=== PATIENT | female | born 1990 | race Caucasian/White ===

== ENCOUNTER 2017-12-17 05:11 | Inpatient (IN) ==
--- OUTSIDE RECORDS SUMMARY | 2017-12-17 05:25 | External Medical Summary | Clinical Summary ---
:1990 Author Organization [facility] Address [address] [address] Care Team Providers Name Role Phone Homer Aguila MD Primary Care Provider Unavailable Allergies No Known Allergies Current Medications Prescription Sig. Disp. Refills Start Date End Date Status Take by mouth. Active Nsnxwuga-Idg-Vc-FA ( VITAMINS PO) aspirin 81 MG EC tablet Take 81 mg by Active mouth daily. 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 Prior poor obstetrical history in second trimester, antepartum 08/25/2017 10/27/2016 Previous section 10/09/2016 Overview: Added automatically from request for surgery [id number] Currently Estimated Date of Delivery Comments Yes 01/07/2018 Based on last menstrual period of 04/02/2017 Resolved Problems Problem Noted Date Resolved Date History of eclampsia 08/25/2017 08/25/2017 Previous delivery affecting 10/08/2016 12/23/2016 PRES (posterior reversible encephalopathy syndrome) 10/08/2016 12/23/2016 Overview: After 2nd c/s History of illicit drug use 10/08/2016 12/23/2016 Obesity affecting 10/08/2016 12/23/2016 Family History Medical History Relation Name Comments No Known Problems Brother No Known Problems Daughter No Known Problems Father No Known Problems Maternal Grandfather No Known Problems Maternal Grandmother No Known Problems Mother No Known Problems Paternal Grandfather No Known Problems Paternal Grandmother No Known Problems Sister No Known Problems Son No Known Problems Son Relation Name Status Comments Brother Alive Daughter Alive Father Alive Maternal Grandfather Alive Maternal Grandmother Alive Mother Alive Paternal Grandfather Alive Paternal Grandmother Alive Sister Alive Son Alive Son Alive Social History Tobacco Use Types Packs/Day Years Used Date Never Smoker Smokeless Tobacco: Never Used Alcohol Use Drinks/Week oz/Week Comments No Currently Estimated Date of Delivery Comments Yes 01/07/2018 Based on last menstrual period of 04/02/2017 Sex Assigned at Date Recorded Not on file Last Filed Vital Signs Vital Sign Reading Time Taken Blood Pressure 116/67 08/25/2017 7:45 AM CDT Pulse 104 08/25/2017 7:45 AM CDT Temperature 36.6 C (97.9 F) 10/28/2016 12:30 PM CDT Respiratory Rate 18 10/28/2016 12:30 PM CDT Oxygen Saturation 97% 10/28/2016 12:30 PM CDT Inhaled Oxygen Concentration - - Weight 90.7 kg (200 lb) 08/25/2017 7:45 AM CDT Height 162.6 cm (5' 4") 10/27/2016 8:20 AM CDT Body Mass Index 34.33 08/25/2017 7:45 AM CDT Plan of Treatment Health Maintenance Due Date Last Done Comments HPV Vaccines (1 of 3 - Female 3-dose series) 2002 Varicella Vaccines (1 of 2 - 2-dose adolescent series) 2004 DTaP,Tdap,and Td Vaccines (1 - Tdap) 2010 CERVICAL CANCER SCREENING 2012 Results Not on filefrom Last 3 Months
--- OUTSIDE RECORDS SUMMARY | 2017-12-17 05:25 | External Medical Summary | Continuity of Care Document ---
:1990 Author Organization [facility] Address [address] [place], [place] [id number] Phone Care Team Providers Name Role Phone [facility] Unavailable Allergies, Adverse Reactions, Alerts Substance Reaction Severity Status No Known Drug Allergies Unknown Active Medications Medication Instructions Dosage Effective Status Comments Dates (start - stop) lancets 33 gauge test 4 times daily - Active OneTouch Verio test 1 Drop by Not Available - Active gestational strips Intradermal route Diab. O24.410 4 times every day fasting and postprandial aspirin 81 mg take 1 tablet by 81 MG - Active tablet,delayed oral route every release day Vitamin take 1 tablet by Not Available - Active tablet oral route every day Problems Condition Effective Dates (start - stop) Clinical Status Supervision of other high risk - pregnancies, third trimester Gestational htn w/o significant - proteinuria, third trimester Gestational diabetes mellitus in - , diet controlled Previous Low Transverse - Supervision of other high risk - pregnancies, second trimester Previous Low Transverse - 26 weeks gestation of - Suprvsn of preg w poor reprodctv or - obstet hx, second tri Previous Low Transverse - Maternal care for (suspected) damage - to fetus by drugs, unsp Obesity complicating , second - trimester Suprvsn of preg w poor reprodctv or - obstet hx, second tri Previous Low Transverse - Maternal care for (suspected) damage - to fetus by drugs, unsp 27 weeks gestation of - Suprvsn of preg w poor reprodctv or - obstet hx, third tri Maternal care for (suspected) damage - to fetus by drugs, unsp Matern care for oth or susp poor fetl - grth, third tri, unsp 30 weeks gestation of - Suprvsn of preg w poor reprodctv or - obstet hx, third tri Supervision of other high risk - pregnancies, third trimester Previous Low Transverse - Maternal care for (suspected) damage - to fetus by drugs, unsp Supervision of other high risk - pregnancies, third trimester Gestational htn w/o significant - proteinuria, third trimester Supervision of other high risk - pregnancies, third trimester Gestational htn w/o significant - proteinuria, third trimester Gestational diabetes mellitus in - , diet controlled Previous Low Transverse - Supervision of other high risk - pregnancies, third trimester Previous Low Transverse - Obesity complicating , third - trimester 28 weeks gestation of - Gestational htn w/o significant - proteinuria, third trimester Previous Low Transverse - Maternal care for (suspected) damage - to fetus by drugs, unsp 30 weeks gestation of - Procedures Procedure Date OB Visit No Charge Results Test Name Date and Time Measure Units Reference Range Abnormal Flag Comments Unknown Advance Directives Directive Yes / No Effective Date File Name Unknown Encounters Encounter Practice Location Reason(s) Diagnoses Date Provider Care Team Description For Visit Members Sarah Mello Supervision of Sobbing In Womens other high risk 6-201 [facility] [place], pregnancies, 8 700 [address] third Medical 1522, [facility] htn w/o Drive, [place], significant [address] [id number], proteinuria, 120, [place] third [place], tel:+ trimesterGestatio [place], nal diabetes [address], mellitus in [place]. , diet tel: controlledPreviou [phone] s Low Transverse [facility] Riaz Supervision of Sobbing In Womens other high risk 5-201 [facility]. [facility] [place], pregnancies, 8 700 [address] third Medical 1522, trimesterGestatio Center [place], nal htn w/o Drive, [place], significant [address] [id number], proteinuria, 120, [place] third [place], tel:+ trimesterGestatio [place], nal diabetes [address], mellitus in [place]. , diet tel: controlledPreviou [phone] s Low Transverse Associates [facility] Ifeanyi Dunnn of preg w Owen Referring In Womens Ultrasound poor reprodctv or 2-201 Viki. Provider: Beck LAM, obstet hx, third 8 [address] [facility] Box triSupervision of Manjula Valles L, 1522, other high risk [place], 700 [place], [place], [place], Medical [place], third [id number] Center [id number], trimesterPrevious , [place]. Drive Low Transverse tel: [address], tel:[phone] C-SectionMaternal [id number] [place], [place], [address]. (suspected) tel: damage to fetus [phone] by drugs, unsp Associates [facility] w Jacob Referring In Womens Ultrasound poor reprodctv or 2-201 Nick. Provider: Beck LAM, obstet hx, third [address] [place] PO Box triMaternal care Karen Vallesbing L, 1522, for (suspected) [place], 700 [place], damage to fetus [place], Medical [place], by drugs, [id number] [place] [id number], unspMatern care , [place]. Drive [place] for oth or susp tel: [address], tel:[phone] poor fetl grth, [id number] [place], third tri, [place]sp30 [place], [address]. weeks gestation tel:[phone] of [phone] Sarah [place] Supervision of Ethan-2 Sobbing In Womens other high risk [place]. Health [place], pregnancies, 8 700 PO Box third Medical 1522, trimesterGestatio Center [place], nal htn w/o Drive, [place], significant [id number], proteinuria, 120, US third trimester [place], tel:+ [place], [address], [place]. tel: [phone] Sarah [place] Gestational htn Ethan-2 Sobbing In Womens Ultrasound w/o significant [place]. Health [place], proteinuria, 8 700 PO Box third Medical 1522, trimesterPrevious Center [place], Low Transverse [facility], [place], C-SectionMaternal [address] [id number], care for 120, [place] (suspected) [place], tel: damage to fetus [place], by drugs, unsp30 [address], weeks gestation [place]. of tel: [phone] Sarah [place] Supervision of Ethan-1 Sobbing Referring In Womens other high risk [place]. Provider: Health [place], pregnancies, 8 700 [place] PO Box third Medical Sobbing L, 1522, trimesterPrevious Center 700 [place], Low Transverse [facility], [facility], C-SectionObesity Suite Center [id number], complicating 120, Drive [place] , third [place], [address], tel:+ [id number] weeks [place], [place] [address], [place], [address]. [place]. tel: tel: [phone] Associates SA[facility] Tenorio of preg w Ethan-0 James Referring In Womens Ultrasound poor reprodctv or Nick. Provider: Health CAROLE, obstet hx, second [address] [place] PO Box triPrevious Low [place], Sobbing L, 1522, Transverse [place], 700 [place], C-SectionMaternal [facility], care for [id number] Center [id number], (suspected) , [place]. Drive [place] damage to fetus tel: [address], tel:[phone] by drugs, unsp27 [id number] [place], [place], [address]. of tel:[phone] [facility] w James Referring In Womens Ultrasound poor reprodctv or Nick. Provider: Beck LAM, obstet hx, second [address] [place] PO Box triPrevious Low [place], Sobbing L, 1522, Transverse [place], 700 [place], C-SectionMaternal [place], [facility], care for [id number] Center [id number], (suspected) , [place]. Drive damage to fetus tel: [address], tel: by drugs, [id number] [place], [address]50 [place], [address]. complicating tel: , second [phone] trimester Associates Riaz Supervision of Sobbing In Womens other high risk - Derrick. Beck LAM, pregnancies, 8 700 PO Box second Medical 1522, trimesterPrevious Center [place], Low [address], [place], C-Qjkiefo01 weeks [address] [id number], gestation of 120, [place], [place], [address], [place]. tel: [phone] Sarah Mello Dec- Sweet In Womens 4-201 . Beck LAM, 5 700 PO Box Medical [address], [address], [facility], 120, , [facility] [place], tel: [phone] [address] , [place]. tel: [phone] Sarah Mello Sweet In Womens 3-201 . Beck LAM, 5 700 PO Box Medical 15[address], [address], [facility], 120, [id number], [place], [place], tel: [phone] [address] , [place]. tel: [phone] Family History Family Member Diagnosis Age At Onset No family history of Cardiovascular Disease No family history of Venous Thrombosis No family history of Pulmonary Embolism No family history of Diabetes No family history of Lung Disease No family history of Osteoporosis No family history of Breast Cancer No family history of Epilepsy No family history of Kidney Disease No family history of Stroke No family history of Colon Cancer No family history of Hypertension No family history of Thyroid Disorder No family history of Ovarian Cancer Immunizations Vaccine Date Status Comments Tdap completed Source: New Immunization Record Payers Payer name Insurance type Covered republican ID Authorization(s) [employer] [place]- Medicaid MC [id number] [employer] [place] - Medicaid MC [id number] Social History Type Description Quantity Date Captured Alcohol Use Details No Caffeine Use Details Unknown Tobacco Use Status Unknown Smoking Status Never smoker Vital Signs Date / Height Weight BMI Pulse Blood Temperature Respiratory Body Head BMI Time: Rate Pressure Rate Surface Circumference percentile Area 203.20 36.5 137/84 2018 lbs 7 mm[Hg] 12:05 kg/m PM eter (2) Chief Complaint And Reason For Visit Unknown Chief Complaint And Reason For Visit Reason For Referral Reason For Referral Unknown Plan Of Care Date Type Action Status Appointment Lisa Azar BOOKED Appointment Lisa Azar BOOKED Appointment Lisa Azar BOOKED Appointment Lisa Azar RIC R C/S, PPTL BOOKED Future Order: Radiology Order OB Detailed Complete Ultrasound Ordered ([id number]) Future Order: Radiology Order Biophysical Profile without NST Ordered ([id number]) Future Order: Radiology Order Umbilical Artery Echo ([id number]) Ordered Future Order: Radiology Order Biophysical Profile without NST Ordered ([id number]) Future Order: Radiology Order Umbilical Artery Echo ([id number]) Ordered Future Order: Radiology Order Ultrasound OB Follow-up ([id number]) Ordered Future Order: Radiology Order Biophysical Profile without NST Ordered ([id number]) Future Order: Lab Order Pap Smear With HPV Reflex If ASCUS Ordered ([id number]) Date Type Problem Goal Intervention Status Start Date Unknown. History Of Present Illness Encounter Date Complaint History Of Present Illness This patient has no known history of present illness Functional Status Encounter Date Functional Assessment Cognitive Assessment Unknown Medications Administered Medication Instructions Dosage Effective Dates (start - stop) Status Comments Drug Treatment Unknown Instructions Date Instruction Additional Information HIV and other routine tests risk factors identified by history anticipated course of care nutrition and weight gain counseling, special diet toxoplasmosis precautions (cats / raw meat) exercise indications for ultrasound environmental / work hazards travel tobacco (ask, advise, assess, assist and arrange) alcohol illicit / recreational drugs use of any medications (including supplements, vitamins, herbs, OTC drugs) smoking counseling domestic violence seat belt use genetic testing risks dentist new ob handbook
--- OUTSIDE RECORDS SUMMARY | 2017-12-17 05:25 | External Medical Summary | Continuity of Care Document ---
:1991 Author Organization [facility] Address [address] [place], [place] [id number] Phone Care Team Providers Name Role Phone [facility] Un[facility] Allergies, Adverse Reactions, Alerts Substance Reaction [...] Transverse - 26 weeks gestation of - Supervision of other high risk - pregnancies, third trimester Gestational htn w/o significant - proteinuria, third trimester Gestational diabetes mellitus in - , diet controlled Previous Low Transverse - Suprvsn of preg w poor reprodctv [...] diabetes mellitus in - , diet controlled Suprvsn of preg w poor reprodctv or - obstet hx, third tri Maternal care for (suspected) damage - to fetus by drugs, unsp Matern Care For Abnlt Fetl Hrt Rate Or - Rhym, 3rd Tri, Unsp 34 weeks gestation of - Suprvsn of preg [...] other high risk - pregnancies, third trimester Matern Care For Abnlt Fetl Hrt Rate Or - Rhym, Unsp Tri, Unsp Supervision of other high risk - pregnancies, [...] drugs, unsp 30 weeks gestation of - Gestational htn w/o significant - proteinuria, third trimester Gestational diabetes mellitus in - , diet controlled Maternal care for (suspected) damage - to fetus by drugs, unsp Matern Care For Abnlt Fetl Hrt Rate Or - Rhym, 3rd Tri, Unsp Procedures Procedure Date Unknown Results Test Name Date and Time Measure Units Reference Range Abnormal Flag Comments Unknown Advance Directives Directive Yes / No Effective Date File Name Unknown Encounters Encounter Practice Location Reason(s) Diagnoses Date Provider Care Team Description For Visit Members Sarah Dunnn of preg w Sobbing In Womens poor reprodctv or 0-201 Derrick. Health CAROLE, obstet hx, third 8 700 PO Box triSupervision of [facility] 1522, other high risk Center Circle, pregnancies, [place], [place], third [address] [id number], trimesterGestatio 120, [place] nal htn w/o Riaz, tel:+ significant [place], proteinuria, [address], third [place]. trimesterGestatio tel: nal diabetes [id number] mellitus in , diet controlled Sarah Mello Supervision of Sobbing In Womens other high risk 0-201 Derrick. Beck LAM, pregnancies, 8 700 PO Box third Medical 1522, trimesterMatern [facility], Care For Abnlt [place], [place], Fetl Hrt Rate Or [address] [id number], Rhym, Unsp Tri, 120, [place] Unsp Riaz, tel:+316 [place], [address], [place]. tel: [phone] Sarah [facility] Gestational htn Owen Referring In Womens Ultrasound w/o significant 0-201 Viki. Provider: Beck LAM, proteinuria, [address] [place] PO Box third Hai, Sobbing L, 1522, trimesterGestatio Circle, 700 Circle, nal diabetes [place], Medical [place], mellitus in [id number] Center [id number], , diet , US. Drive US controlledMaterna tel: [address], tel:[phone] l care for [id number] [place], (suspected) [place], [address]. damage to fetus tel:+ by drugs, [id number] unspMatern Care For Abnlt Fetl Hrt Rate Or Rhym, 3rd Tri, Unsp [facility] w Nov-3 James Referring In Womens Ultrasound poor reprodctv or 0-201 Nick. Provider: Beck LAM, obstet hx, third [address] [place] PO Box triMaternal care Manjula Valles L, 1522, for (suspected) Circle, 700 Circle, damage to fetus [place], Medical [place], by drugs, [id number] [place] [id number], unspMatern Care , [place]. Drive US For Abnlt Fetl tel: [address], tel:[phone] Hrt Rate Or Rhym, [id number] [place], 3rd Tri, Unsp34 [place], [address]. weeks gestation tel:+ of [phone] Sarah Mello Nov-2 Sobbing In Womens 5-201 [place]. Beck LAM, 8 700 PO Box Medical 1522, [place], [place], [address] [id number], 120, [place] Riaz, tel:+ [place], [address], [place]. tel: [phone] Sarah [place] Supervision of Nov-1 Sobbing In Womens other high risk 6-201 [place]. Health CAROLE, pregnancies, 8 700 PO Box third Medical 1522, trimesterGestatio [facility] htn w/o [place], [place], significant [address] [id number], proteinuria, 120, US third Riaz, tel:[phone] trimesterGestatio [place], nal diabetes [address], mellitus in [place]. , diet tel: controlledPreviou [phone] s Low Transverse Associates Riaz Supervision of Nov-0 Sobbing In Womens other high risk 5-201 [place]. Health CAROLE, pregnancies, 8 700 PO Box third Medical 1522, trimesterGestatio [facility] nal htn w/o [place], [place], significant Suite , proteinuria, 120, US third [place], tel: trimesterGestatio [place], nal diabetes [address], mellitus in [place]. , diet tel: controlledPreviou [phone] s Low Transverse Associates [facility] w Weaver Referring In Womens Ultrasound poor reprodctv or 2-201 Viki. Provider: Beck LAM, obstet hx, third [address] [place] PO Box triSupervision of Manjula Valles L, 1522, other high risk Circle, 700 Circle, pregnancies, [place], Medical [place], third [id number] Center [id number], trimesterPrevious , [place]. Drive US Low Transverse tel: [address], tel:316 C-SectionMaternal [id number] [place], [place], [address]. (suspected) tel: damage to fetus [phone] by drugs, unsp [facility] w Jacob Referring In Womens Ultrasound poor reprodctv or 2-201 Inck. Provider: Beck LAM, obstet hx, third 8 [address] [facility] Box triMaternal care Manjula Valles L, 1522, for (suspected) Circle, 700 Circle, damage to fetus [place], Medical [place], by drugs, [id number] [place] [id number], unspMatern care , [place]. Drive US for oth or susp tel: [address], tel:2 poor fetl grth, [id number] [place], third tri, unsp30 [place], [address]. weeks gestation tel: of [phone] Sarah M[place] Supervision of Ethan-2 Sobbing In Womens other high risk [place]. Health [place], pregnancies, 8 700 PO Box third Medical 1522, trimesterGestatio Center Circle, nal htn w/o [facility], [place], significant Suite , proteinuria, 120, US third trimester [place], tel:316 [place], [address], [place]. tel: [phone] Sarah [place] Gestational htn Ethan-2 Sobbing In Womens Ultrasound w/o significant 8-201 [place]. Health PA, proteinuria, 8 700 [address] Box third Medical 1522, trimesterPrevious Center Circle, Low [address], [place], C-SectionMaternal [address] [id number], care for 120, US (suspected) [place], tel: damage to fetus [place], by drugs, unsp30 [address], weeks gestation [place]. of tel: [phone] Associates Riaz Supervision of Sobbing Referring In Womens other high risk [place]. Provider: Health PA, pregnancies, 8 700 Derrick PO Box third Medical Sobbing L, 1522, trimesterPrevious Center 700 Circle, Low Transverse [facility], Medical [place], C-SectionObesity Suite Center [id number], complicating 120, Drive [place] , third [place], [address], tel: [id number] weeks [place], [place], [place] [address], [place], [address]. [place]. tel: tel: [phone] Associates SAUMYA Tenorio of preg w Ethan-0 James Referring In Womens Ultrasound poor reprodctv or Nick. Provider: Beck LAM, obstet hx, second [address] [place] PO Box triPrevious Low [place], Sobbing L, 1522, Transverse Circle, 700 Circle, C-SectionMaternal [facility], care for [id number] Center [id number], (suspected) , [place]. Drive [place] damage to fetus tel: [address], tel: by drugs, unsp27 [id number] [place], [place], [address]. of tel:[phone] Associates [facility] Ifeanyi Dunnn of preg w Oct-0 James Referring In Womens Ultrasound poor reprodctv or Nick. Provider: Beck LAM, obstet hx, second 8 [address] [place] PO Box triPrevious Low [place], Sobbing L, 1522, Transverse Circle, 700 Circle, C-SectionMaternal [place], [facility], care for [id number] Center [id number], (suspected) , [place]. Drive US damage to fetus tel: [address], tel: by drugs, [phone] [place], [place], [address]. complicating tel: , second [phone] trimester Associates Riaz Supervision of Sobbing In Womens other high risk - Derrick. Health PA, pregnancies, 8 700 PO Box second Medical 1522, trimesterPrevious [facility], [address], [place], C-Wtujfhs10 weeks [address] [id number], gestation of 120, [place], tel: [place], [address], [place]. tel: [phone] Sarah [place] Sweet In Womens 4-201 . Health PA, 5 700 PO Box Medical [address], [place] [address] [place], [facility], 120, [id number], [facility] [place], tel:[phone] , [place]. tel: [phone] Sarah [place] Sweet In Womens 3-201 . Health PA, 5 700 PO Box Medical [address], [place] [address] Ana, [facility], 120, [id number], [facility] [place], tel:[phone] , [place]. tel: [phone] Family History Family Member Diagnosis Age At [...] Record Payers Payer name Insurance type Covered libertarian ID Authorization(s) [employer] [place]- Medicaid MC [id number] [employer] [place] - Medicaid MC [id number] Social History Type Description Quantity Date Captured Unknown Vital Signs Date / Height Weight BMI Pulse Blood Temperature Respiratory Body Head BMI Time: Rate Pressure Rate Surface Circumference percentile Area Unknown Chief Complaint And Reason For Visit Unknown Chief Complaint And Reason For Visit Reason For Referral Reason For Referral Unknown Plan Of Care Date Type Action Status Appointment Lisa Azar [facility] R C/S, PPTL BOOKED Future Order: Radiology Order OB Detailed Complete Ultrasound Ordered ([id number]) Future Order: Radiology Order Biophysical Profile without NST Ordered ([id number]) Future Order: Radiology Order Umbilical Artery Echo ([id number]) Ordered Future Order: Radiology Order Biophysical Profile without NST Ordered ([id number]) Future Order: Radiology Order Umbilical Artery Echo ([id number]) Ordered Future Order: Radiology Order Ultrasound OB Follow-up ([id number]) Ordered Future Order: Radiology Order Biophysical Profile without NST Ordered ([id number]) Future Order: Radiology Order Umbilical Artery Echo ([id number]) Ordered Future Order: Radiology Order Ultrasound OB Follow-up ([id number]) Ordered Future Order: Radiology Order Biophysical Profile without NST Ordered ([id number]) Future Order: Lab Order Pap Smear With [...]
--- OUTSIDE RECORDS SUMMARY | 2017-12-17 05:25 | External Medical Summary | Continuity of Care Document ---
:1990 Author Organization [facility] Address [address] [place], [place] [id number] Phone Care Team Providers Name Role Phone [facility] Unavailable Allergies, Adverse Reactions, Alerts Substance Reaction Severity Status No Known Drug Allergies Unknown Active Medications Medication Instructions Dosage Effective Status Comments Dates (start - stop) lancets 33 test 4 times - Active gauge daily OneTouch Verio test 1 Drop by Not Available - Active gestational strips Intradermal route Diab. O24.410 4 times every day fasting and postprandial aspirin 81 mg take 1 tablet by 81 MG - Active tablet,delayed oral route every release day take 1 tablet by Not Available - Active Vitamin tablet oral route every day lancets 33 test 4 times - No Longer gauge daily Active Problems Condition Effective Dates (start - stop) [...] weeks gestation of - Procedures Procedure Date Unknown Results Test Name Date and Time Measure Units Reference Range Abnormal Flag Comments Unknown Advance Directives Directive Yes / No Effective Date File Name Unknown Encounters Encounter Practice Location Reason(s) Diagnoses Date Provider Care Team Description For Visit Members Sarah Mello Supervision of Sobbing In Womens other high risk 6-201 [facility], pregnancies, 8 700 [address] [facility] Medical 1522, [facility]Gestatio [facility] htn w/o [place], [place], significant [id number], proteinuria, 120, US third [place], tel:+ trimesterGestatio [place], nal diabetes [address], mellitus in [place]. , diet tel: controlledPreviou [phone] s Low [facility] Riaz Supervision of Nov-0 Sobbing In Womens other high risk 5-201 [place] [place], pregnancies, 8 700 PO Box [facility] Medical 1522, trimesterGestatio Center [place], [facility] htn w/o [place], significant [id number], proteinuria, 120, US third [place], tel:+ trimesterGestatio [place], nal diabetes [address], mellitus in [place]. , diet tel: controlledPreviou [phone] s Low [facility] Riaz Nov-0 Sobbing In Womens 3-201 [place] [place], 8 700 PO Box [facility] 1522, [place], [place], [address] [id number], 120, [place], tel:+316 [place], [address], [place]. tel: [phone] [facility] Ifeanyi Sextonn of preg w Nov-0 Owen Referring In Womens Ultrasound poor reprodctv or -201 Viki. Provider: Beck LAM, obstet hx, third 8 [address] [facility] Box triSupervision of Manjula Valles L, 1522, other high risk [place], 700 [place], pregnancies, [place], Medical [place], third [id number] Center [id number], trimesterPrevious , US. Drive US Low Transverse tel: [address], tel:+[phone] C-SectionMaternal [phone] [place], [place], [address]. (suspected) tel:+ damage to fetus [phone] by drugs, unsp [facility] Ifeanyi Suprvsn of preg w Nov-0 Jacob Referring In Womens Ultrasound poor reprodctv or 2-201 Nick. Provider: Beck LAM, obstet hx, third 8 [address] [facility] Box triMaternal care [place] phan L, 1522, for (suspected) [place], 700 [place], damage to fetus [place], Medical [place], by drugs, [id number] Center [id number], unspMatern care , US. Drive US for oth or susp tel: [address], tel:+ poor fetl grth, [phone] [place], third tri, [place]sp30 [place], [address]. weeks gestation tel: of [phone] Associates Riaz Supervision of Ethan-2 Sobbing In Womens other high risk [place] CAR[place], pregnancies, 8 700 PO Box third Medical 1522, trimesterGestatio Center [place], nal htn w/o Drive, [place], significant [address] [id number], proteinuria, 120, US third [place], [place], [address], [place]. tel: [phone] Sarah Mello Gestational htn Ethan-2 Sobbing In Womens Ultrasound w/o significant [place]. Health CAR[place], proteinuria, 8 700 PO Box third Medical 1522, trimesterPrevious Center [place], Low Transverse [place], [place], C-SectionMaternal [id number], care for 120, US (suspected) Riaz, tel: damage to fetus [place], by drugs, unsp30 [address], weeks gestation [place]. of tel: [phone] Sarah Mello Supervision of Ethan-1 Sobbing Referring In Womens other high risk [place]. Provider: Beck LAM, pregnancies, 8 700 Derrick PO Box third Medical Sobbing L, 1522, trimesterPrevious Center 700 [place], Low Transverse [facility], [facility], C-SectionObesity Suite Center [id number], complicating 120, Drive [place] , third [place], [address], tel: [place], [place] [address], [place], [address]. [place]. tel: tel: [phone] Associates [facility] Dunnn of preg w Ethan-0 James Referring In Womens Ultrasound poor reprodctv or Nick. Provider: Beck LAM, obstet hx, second 8 [address] [place] PO Box triPrevious Low [place], Sobbing L, 1522, Transverse [place], 700 [place], C-[facility]Maternal [facility], care for [id number] Center [id number], (suspected) , US. Drive US damage to fetus tel: [address], tel: by drugs, unsp27 [id number] [place], [place], [address]. of tel:[phone] [facility] Ifeanyi Sextonvsn of preg w Ethan-0 Jacob Referring In Womens Ultrasound poor reprodctv or Nick. Provider: Beck LAM, obstet hx, second 8 [address] [facility] Box triPrevious Low [place], Sobbing L, 1522, Transverse [place], 700 [place], C-SectionMaternal [facility], care for [id number] Center [id number], (suspected) , US. Drive US damage to fetus tel: [address], tel: by drugs, [id number] [place], [place], [address]. complicating tel: , second [phone] trimester Associates Riaz Supervision of Sobbing In Womens other high risk [place]. Health CAROLE, pregnancies, 8 700 PO Box second Medical 1522, trimesterPrevious [facility], Low Transverse [facility], [place], C-Bnsytnx76 weeks [address] [id number], gestation of 120, [place], [place], [address], [place]. tel: [phone] Sarah Mello Sweet In Womens 4-201 . Health [place], 5 700 PO Box Medical [address], [address], [facility] [place], 120, [id number], [place], [place], tel: [phone] [address] , [place]. tel: [phone] Saarh Mello Sweet In Womens 3-201 . Beck LAM, 5 700 PO Box Medical [address], [address], [facility] [place], 120, [id number], [place], [place], tel:[phone] , [place]. tel: [phone] Family History Family Member Diagnosis Age At [...] Authorization(s) [employer] [place] [place] [id number] [employer] [place] Medicaid MC [id number] Social History Type Description Quantity Date Captured [...] Appointment Lisa Azar BOOKED Appointment Lisa Azar [facility] R C/S, PPTL BOOKED Future Order: Radiology Order OB Detailed Complete Ultrasound Ordered ([id number]) Future Order: Radiology Order Biophysical Profile without NST Ordered ([id number]) Future Order: Radiology Order Umbilical Artery Echo ([id number]) Ordered Future Order: Radiology Order Biophysical Profile without NST Ordered ([id number]) Future Order: Radiology Order Umbilical Artery Echo ([id number]) Ordered Future Order: Radiology Order Ultrasound OB Follow-up ([id number]) Ordered Future Order: Radiology Order Biophysical Profile without NST Ordered ([id number]) Future Order: Lab Order Pap Smear With [...]
--- OUTSIDE RECORDS SUMMARY | 2017-12-17 05:25 | External Medical Summary | Continuity of Care Document ---
:1991 Author Organization [facility] Address [address] [place], [place] [id number] Phone Care Team Providers Name Role Phone [facility] Unavailable Allergies, Adverse Reactions, Alerts Substance Reaction [...] Provider Care Team Description For Visit Members [facility] Gestational htn Weaver Referring In Womens Ultrasound w/o significant 0-201 Viki. Provider: Beck LAM, proteinuria, [address] [place] PO Box third Hai, Sobbing L, 1522, trimesterGestatio [place], 700 [place], nal diabetes [place], Medical [place], mellitus in [id number] Canal[place] [id number], , diet , [place]. Drive controlledMaterna tel: [address], tel:[phone] l care for [phone] Riaz (suspected) [place], [address]. damage to fetus tel:+[phone] by drugs, [phone] unspMatern Care For Abnlt Fetl Hrt Rate Or Rhym, 3rd Tri, Unsp [facility] Suprvsn of preg w James Referring In Womens Ultrasound poor reprodctv or 0-201 Nick. Provider: Beck LAM, obstet hx, third [address] [place] PO Box triMaternal care Karen Vallesbing L, 1522, for (suspected) [place], 700 [place], damage to fetus [place], Medical [place], by drugs, [id number] [place] [id number], unspMatern Care , US. Drive US For Abnlt Fetl tel: [address], tel:[phone] Hrt Rate Or Rhym, [id number] Riaz, 3rd Tri, Unsp34 [place], [address]. weeks gestation tel:[phone] of [phone] Sarah Mello Supervision of Sobbing In Womens other high risk 6-201 [place]. Beck LAM, pregnancies, 8 700 PO Box third Medical 1522, trimesterGestatio Center [place], nal htn w/o Drive, [place], significant [address] [id number], proteinuria, 120, US richard [place], tel:[phone], nal diabetes [address], mellitus in [place]. , diet tel: controlledPreviou [phone] s Low Transverse [facility] Jacob In Womens -201 Nick. Health [place], [address] [place], 1522, [place], [place], [place], [id number], , [place]. US tel: tel: [phone] Associates Riaz Supervision of Sobbing In Womens other high risk 5-201 [place]. [facility] [place], pregnancies, 8 700 PO Box third Medical 1522, trimesterGestatio Center [place], nal htn w/o Drive, [place], significant [id number], proteinuria, 120, US third Riaz, tel: trimesterGestatio [place], nal diabetes [address], mellitus in [place]. , diet tel: controlledPreviou [phone] s Low [facility] Owen Referring In Womens Ultrasound poor reprodctv or -201 Viki. Provider: Beck LAM, obstet hx, third [address] [place] PO Box triSupervision of HaiManjula phan L, 1522, other high risk [place], 700 [place], pregnancies, [place], Medical [place], third [id number] Center [id number], trimesterPrevious , US. Drive US Low Transverse tel: [address], tel: C-SectionMaternal [phone] [place], [place], [address]. (suspected) tel: damage to fetus [phone] by drugs, unsp [facility] Monan of preg w Jacob Referring In Womens Ultrasound poor reprodctv or - Nick. Provider: Beck LAM, obstet hx, third 8 [address] [place] PO Box triMaternal care HaiManjula phan L, 1522, for (suspected) [place], 700 [place], damage to fetus [place], Medical [place], by drugs, [id number] Center [id number], unspMatern care , US. Drive US for oth or susp tel: [address], tel: poor fetl grth, [phone] Riaz, third tri, unsp30 [place], [address]. weeks gestation tel: of [phone] Associates Riaz Supervision of Ethan-2 Sobbing In Womens other high risk [place]. Health CAROLE, pregnancies, 8 700 PO Box third Medical 1522, trimesterGestatio Center [place], nal htn w/o Drive, [place], significant [address] [id number], proteinuria, 120, US third trimester [place], [place]: [place], [address], [place]. tel: [phone] Associates Riaz Gestational htn Ethan-2 Sobbing In Womens Ultrasound w/o significant [place]. Health CAROLE, proteinuria, 8 700 PO Box third Medical 1522, trimesterPrevious Center [place], Low Transverse [place], C-SectionMaternal [address] [id number], care for 120, US (suspected) Riaz, tel: damage to fetus CT, by drugs, unsp30 [address], weeks gestation [place]. of tel: [phone] Sarah Mello Supervision of Ethan-1 Sobbing Referring In Womens other high risk [place]. Provider: Beck LAM, pregnancies, 8 700 [facility] Box third Medical Sobbing L, 1522, trimesterPrevious Center 700 [place], Low Transverse [facility], [facility], C-SectionObesity Suite Center [id number], complicating 120, Drive US , third [place], [address], tel: [id number] weeks R[place] [address], [place], [address]. [place]. tel: tel: [phone] [facility] Suprvsn of preg w Ethan-0 James Referring In Womens Ultrasound poor reprodctv or Nick. Provider: Beck LAM, obstet hx, second [address] [place] PO Box triPrevious Low Hai, Sobbing L, 1522, Transverse [place], 700 [place], C-SectionMaternal CT, Medical CT, care for [id number] Center [id number], (suspected) , US. Drive US damage to fetus tel: [address], tel: by drugs, unsp27 [id number] [place], [place], [address]. of tel:[phone] Associates SAUM[facility] Dunnn of preg w Ethan-0 Jacob Referring In Womens Ultrasound poor reprodctv or Nick. Provider: Beck LAM, obstet hx, second [address] [place] PO Box triPrevious Low [place], Sobbing L, 1522, Transverse [place], 700 [place], C-SectionMaternal CT, [facility], care for [id number] Center [id number], (suspected) , US. Drive US damage to fetus tel: [address], tel: by drugs, [id number] [place], [place], [address]. complicating tel: , second [phone] trimester Associates Riaz Supervision of Sobbing In Womens other high risk [place]. Health CAROLE, pregnancies, 8 700 PO Box second Medical 1522, trimesterPrevious [facility], Low Transverse [address], [place], C-Wqnslng23 weeks [id number], gestation of 120, [place], [place]: [place], [address], [place]. tel: [phone] Sarah Mello Sweet In Womens 4-201 . Beck LAM, 5 700 PO Box Medical [address], [address], [facility], 120, , [facility] [place], tel: [phone] [address] , [place]. tel: [phone] Sarah Mello Sweet In Womens 3-201 . Beck LAM, 5 700 PO Box Medical 1522, [address], [facility], 120, , [facility] [place], tel:[phone] , [place]. tel: [phone] Family History Family Member Diagnosis Age At [...] Authorization(s) [employer] [place] Medicaid MC [id number] [employer] [place] [employer] Medicaid MC [id number] Social History Type Description Quantity Date Captured Unknown Vital Signs Date / Height Weight BMI Pulse Blood Temperature Respiratory Body Head BMI Time: Rate Pressure Rate Surface Circumference percentile Area Unknown Chief Complaint And Reason For Visit Unknown Chief Complaint And Reason For Visit Reason For Referral Reason For Referral Unknown Plan Of Care Date Type Action Status Appointment Lisa Azar [facility] R C/S, PPTL BOOKED Future Order: Radiology Order OB Detailed Complete Ultrasound Ordered ([id number]) Future Order: Radiology Order Biophysical Profile without NST Ordered ([id number]) Future Order: Radiology Order Umbilical Artery Echo ([id number]) Ordered Future Order: Radiology Order Biophysical Profile without NST Ordered ([id number]) Future Order: Radiology Order Umbilical Artery Echo ([id number]) Ordered Future Order: Radiology Order Ultrasound OB Follow-up ([id number]) Ordered Future Order: Radiology Order Biophysical Profile without NST Ordered ([id number]) Future Order: Radiology Order Umbilical Artery Echo ([id number]) Ordered Future Order: Radiology Order Ultrasound OB Follow-up ([id number]) Ordered Future Order: Radiology Order Biophysical Profile without NST Ordered ([id number]) Future Order: Lab Order Pap Smear With [...]
--- OUTSIDE RECORDS SUMMARY | 2017-12-17 05:25 | External Medical Summary | Continuity of Care Document ---
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 Results Test Name Date and Time Measure Units Reference Range Abnormal Flag Comments Panel Description: OBSTETRIC PANEL HEPATITIS B SURFACE ANTIGEN 10:00:00 Negative Advance Directives Directive Yes / No Effective Date File Name Unknown Encounters Encounter Practice Location Reason(s) Diagnoses Date Provider Care Team Description For Visit Members Sarah Mello Supervision of Sobbing In Womens other high risk 6-201 [facility] [place], pregnancies, 8 700 PO Box third Medical 1522, trimesterGestatio Center [place], nal htn w/o Drive, [place], significant [id number], proteinuria, 120, US third [place], tel:+[phone] trimesterGestatio [place], nal diabetes [address], mellitus in [place]. , diet tel: controlledPreviou [phone] s Low Transverse Associates Riaz Supervision of Sobbing In Womens other high risk 5-201 [place]. Health [place], pregnancies, 8 700 PO Box third Medical 1522, trimesterGestatio Center [place], nal htn w/o Drive, [place], significant [address] [id number], proteinuria, 120, US third [place], tel:+ trimesterGestatio [place], nal diabetes [address], mellitus in [place]. , diet tel: controlledPreviou [phone] s Low [facility] SAUMYA Tenorio of preg w Owen Referring In Womens Ultrasound poor reprodctv or -201 Viki. Provider: Beck LAM, obstet hx, third 8 [address]32 [address] [facility] Box triSupervision of Manjula Valles L, 1522, other high risk [place], 700 [place], pregnancies, [place], Medical [place], third [id number] Center [id number], trimesterPrevious , [place]. Drive Low Transverse tel: [address], tel:[phone] C-SectionMaternal [id number] [place], [place], [address]. (suspected) tel: damage to fetus [phone] by drugs, unsp [facility] Ifeanyi Dunnn of preg w Jacob Referring In Womens Ultrasound poor reprodctv or 2-201 Nick. Provider: Beck LAM obstet hx, third [address] [place] PO Box triMaternal care HaiManjlua phan L, 1522, for (suspected) [place], 700 [place], damage to fetus [place], Medical [place], by drugs, [id number] [place] [id number], unspMatern care , US. Drive US for oth or susp tel: [address], tel:[phone] poor fetl grth, [id number] Riaz, third tri, unsp30 [place], [address]. weeks gestation tel:+ of [phone] Associates Riaz Supervision of Ethan-2 Sobbing In Womens other high risk [place]. Health [place], pregnancies, 8 700 PO Box third Medical 1522, trimesterGestatio Center [place], nal htn w/o Drive, [place], significant [id number], proteinuria, 120, US third trimester [place], tel:+ [place], [address], [place]. tel: [phone] Sarah Mello Gestational htn Ethan-2 Sobbing In Womens Ultrasound w/o significant [place]. Health [place], proteinuria, 8 700 PO Box third Medical 1522, trimesterPrevious Center [place], Low [facility]verse [facility], [place], C-SectionMaternal [id number], care for 120, US (suspected) Riaz, tel:+ damage to fetus [place], by drugs, unsp30 [address], weeks gestation [place]. of tel: [phone] Sarah Mello Supervision of Ethan-1 Sobbing Referring In Womens other high risk [place]. Provider: Health [place], pregnancies, 8 700 [place] PO Box third Medical Sobbing L, 1522, trimesterPrevious Center 700 [place], Low [facility]verse [facility], [facility], C-SectionObesity Suite Center [id number], complicating 120, Drive US , third [place], [address], tel:+ [id number] weeks [place] [address], [place], [address]. [place]. tel: tel: [phone] Associates SA[facility] Tenorio of preg w Ethan-0 Jacob Referring In Womens Ultrasound poor reprodctv or Nick. Provider: Health CAROLE, obstet hx, second 8 3232 [address] [place] PO Box triPrevious Low Hai, Sobbing L, 1522, Transverse [place], 700 [place], C-SectionMaternal [facility], care for [id number] Center [id number], (suspected) , US. Drive US damage to fetus tel: [address], tel:[phone] by drugs, unsp27 [id number] [place], [address]. of tel:[phone] Associates [facility] Suprvsn of preg w Ethan-0 James Referring In Womens Ultrasound poor reprodctv or Nick. Provider: Beck LAM, obstet hx, second 8 3232 E [facility] Box triPrevious Low Hai, Sobbing L, 1522, Transverse [place], 700 [place], C-SectionMaternal [place], [facility], care for [id number] Center [id number], (suspected) , US. Drive US damage to fetus tel: [address], tel: by drugs, [id number] [place], [place], [address]. complicating tel: , second [phone] trimester Associates Riaz Supervision of Sobbing In Womens other high risk [place]. Beck LAM, pregnancies, 8 700 PO [facility] Medical 1522, trimesterPrevious [facility], Low [address], [place], C-Upteiod60 weeks [id number], gestation of 120, [place], [place]: [place], [address], [place]. tel: [phone] Sarah Mello Sweet In Womens 4-201 . Beck LAM, 5 700 [facility] 1522, [place] [address] [place], [facility], 120, [id number], [place], [place], tel: [phone] , [place]. tel: [phone] Sarah Mello Sweet In Womens 3-201 . Beck LAM, 5 700 PO Box [facility] 15[address], [place] [address] [place], [facility] [place], 120, [id number], [place], [place], tel:[phone] [address] , [place]. tel: [phone] Family History Family Member Diagnosis Age At [...] Record Payers Payer name Insurance type Covered democrat ID Authorization(s) [employer] [place]- Medicaid MC [id number] [employer] [place] MC [id number] Social History Type Description Quantity Date Captured Alcohol Use Details No Caffeine Use Details Unknown Tobacco Use Status Never smoked tobacco Smoking Status Never smoker Non-Smoking Tobacco Use : No Details Available : No Details Available Details Vital Signs Date / Height Weight BMI Pulse Blood Temperature Respiratory Body Head BMI Time: Rate Pressure Rate Surface Circumference percentile Area 208.20 37.4 130/2018 lbs 7 mm[Hg] 2:53 kg/m PM eter (2) Chief Complaint And Reason For Visit Unknown Chief Complaint And Reason For Visit Reason For Referral Reason For Referral Unknown Plan Of Care Date Type Action Status Appointment Lisa Azar BOOKED Appointment Lisa Azar BOOKED Appointment Lisa Azar [facility] [place] [place] R C/S, PPTL BOOKED Future Order: Radiology Order OB Detailed Complete Ultrasound Ordered ([id number]) Future Order: Radiology Order Biophysical Profile without NST Ordered ([id number]) Future Order: Radiology Order Umbilical Artery Echo ([id number]) Ordered Future Order: Radiology Order Biophysical Profile without NST Ordered ([id number]) Future Order: Radiology Order Umbilical Artery Echo ([id number]) Ordered Future Order: Radiology Order Ultrasound OB Follow-up ([id number]) Ordered Future Order: Radiology Order Biophysical Profile without NST Ordered ([id number]) Future Order: Lab Order Pap Smear With [...]
--- OUTSIDE RECORDS SUMMARY | 2017-12-17 05:25 | External Medical Summary | Continuity of Care Document ---
:1991 Author Organization [facility] [employer] [facility] [employer] [facility] Address [address] [place], [place] [id number] Phone Care Team Providers Name Role Phone [facility] Un[facility] Allergies, Adverse Reactions, Alerts Substance Reaction [...] Effective Dates (start - stop) Clinical Status Suprvsn of preg w poor reprodctv or [...] tri, unsp 30 weeks gestation of - Supervision of other [...] gestation of - Procedures Procedure Date OB Office/outpt visit, Est, low Results Test Name Date and Time Measure Units Reference Range Abnormal Flag Comments Panel Description: Lupus Anticoagulant Reflex PTT-LA 33.4 sec 0.0-51.9 12:12:00 dRVVT 40.1 sec 0.0-47.0 12:12:00 Lupus Reflex Comment: No lupus Interpretation 12:12:00 anticoagulant was detected. Panel Description: Anticardiolip Ab, IgA/G/M, Qn Anticardiolipin 12:12:00 <9 GPL U/mL 0-14 Ab,IgG,Qn Negative: <15 Indeterminate: 15 - 20 Low-Med Positive: >20 - 80 High Positive: >80 Anticardiolipin 12:12:00 22 MPL U/mL 0-12 H Ab,IgM,Qn Negative: <13 Indeterminate: 13 - 20 Low-Med Positive: >20 - 80 High Positive: >80 Anticardiolipin 12:12:00 <9 APL U/mL 0-11 Ab,IgA,Qn Negative: <12 Indeterminate: 12 - 20 Low-Med Positive: >20 - 80 High Positive: >80 Panel Description: Beta-2 Glycoprotein I Ab,G,A,M Beta-2 Glycoprotein <9 GPI IgG 0-20 The reference interval I Ab, IgG 12:12:00 units reflects a 3SD or 99th percentile interval,which is thought to represent a potentially clinically significantresult in accordance with the International Consensus Statement onthe classification criteria for definitive antiphospholipid syndrome(APS). J Thromb Haem 2006;4:295-306. Beta-2 Glycoprotein <9 GPI IgA 0-25 The reference interval I Ab, IgA 12:12:00 units reflects a 3SD or 99th percentile interval,which is thought to represent a potentially clinically significantresult in accordance with the International Consensus Statement onthe classification criteria for definitive antiphospholipid syndrome(APS). J Thromb Haem 2006;4:295-306. Beta-2 Glycoprotein <9 GPI IgM 0-32 The reference interval I Ab, IgM 12:12:00 units reflects a 3SD or 99th percentile interval,which is thought to represent a potentially clinically significantresult in accordance with the International Consensus Statement onthe classification criteria for definitive antiphospholipid syndrome(APS). J Thromb Haem 2006;4:295-306. Advance Directives Directive Yes / No Effective Date File Name Unknown Encounters Encounter Practice Location Reason(s) Diagnoses Date Provider Care Team Description For Visit Members Sarah Mello Supervision of Sobbing In Womens other high risk 6-201 [facility], pregnancies, 8 700 PO [facility] 1522, [facility], [place] htn w/o Drive, [place], significant [id number], proteinuria, 120, US third Mello, tel:+ trimesterGestatio [place], nal diabetes [address], mellitus in [place]. , diet tel: controlledPreviou [phone] s Low Transverse Associates Riaz Supervision of Sobbing In Womens other high risk 5-201 [place]. [facility] [place], pregnancies, 8 700 PO Box third Medical 1522, trimesterGestatio Center [place], nal htn w/o [facility], [place], significant [id number], proteinuria, 120, US third Mello, tel:+ trimesterGestatio [place], nal diabetes [address], mellitus in [place]. , diet tel: controlledPreviou [phone] s Low Transverse [facility] hx of PRES Suprvsn of preg w Weaver Referring Office/outpt In Womens Ultrasound (chief poor reprodctv or Viki. Provider: visit, Est, Health PA, complaint) obstet hx, third [address] [place] low PO Box triSupervision of Manjula Valles L, 1522, other high risk [place], 700 [place], pregnancies, [place], Medical [place], third [id number] Center [id number], trimesterPrevious , US. Drive US Low Transverse tel: [address], tel:[phone] C-SectionMaternal [id number] [place], [place], [address]. (suspected) tel: damage to fetus [phone] by drugs, unsp Associates [facility] Suprvsn of preg w Jacob Referring In Womens Ultrasound poor reprodctv or -201 Nick. Provider: Health PA, obstet hx, third [address] [place] PO Box triMaternal care HaiManjula phan L, 1522, for (suspected) [place], 700 [place], damage to fetus [place], Medical [place], by drugs, [id number] Center [id number], unspMatern care , US. Drive US for oth or susp tel: [address], tel:[phone] poor fetl grth, [id number] [place], third tri, unsp30 [place], [address]. weeks gestation tel: of [phone] Associates Riaz Supervision of Ethan-2 Sobbing In Womens other high risk [place]. [facility] [place], pregnancies, 8 700 PO Box third Medical 1522, trimesterGestatio Center [place], nal htn w/o Drive, [place], significant [address] [id number], proteinuria, 120, US third trimester [place], [place], [address], [place]. tel: [phone] Sarah Mello Gestational htn Ethan-2 Sobbing In Womens Ultrasound w/o significant [place]. Health [place], proteinuria, 8 700 PO Box third Medical 1522, trimesterPrevious Center [place], Low Transverse [address], [place], C-SectionMaternal [id number], care for 120, US (suspected) Riaz, tel: damage to fetus [place], by drugs, unsp30 [address], weeks gestation [place]. of tel: [phone] Sarah Mello Supervision of Ethan-1 Sobbing Referring In Womens other high risk [place]. Provider: Beck LAM, pregnancies, 8 700 Der[place] PO Box third Medical Sobbing L, 1522, trimesterPrevious Center 700 [place], Low Transverse [facility], [facility], C-SectionObesity Suite Center [id number], complicating 120, Drive [place] , third [place], [address], tel:+ weeks [place], [place], [place] [address], [place], [address]. [place]. tel: tel: [phone] Associates [facility] of preg w Ethan-0 James Referring In Womens Ultrasound poor reprodctv or Nick. Provider: Health CAROLE, obstet hx, second [address] [place] PO Box triPrevious Low Hai, Sobbing L, 1522, Transverse [place], 700 [place], C-SectionMaternal [place], Medical [place], care for [id number] Center [id number], (suspected) , US. Drive US damage to fetus tel: [address], tel:[phone] by drugs, unsp27 [id number] [place], [place], [address]. of tel:[phone] Associates [facility] Dunnn of preg w Ethan-0 James Referring In Womens Ultrasound poor reprodctv or Nick. Provider: Beck LAM, obstet hx, second [address] [place] PO Box triPrevious Low [place], Sobbing L, 1522, Transverse [place], 700 [place], C-SectionMaternal [place], [facility], care for [id number] Center [id number], (suspected) , US. Drive damage to fetus tel: [address], tel: by drugs, [id number] [place], [place], [address]. complicating tel: , second [phone] trimester Associates Riaz Supervision of Sobbing In Womens other high risk [place]. Beck LAM, pregnancies, 8 700 PO Box second Medical 1522, trimesterPrevious [facility], Low [address], [place], C-Wmoowzh28 weeks [id number], gestation of 120, [place], [place], [address], [place]. tel: [phone] Sarah Mello Sweet In Womens 4-201 . Beck LAM, 5 700 PO Box Medical [address], [place] [address] Ana, [facility], 120, [id number], [facility] [place], tel: [phone] , [place]. tel: [phone] Sarah Mello Sweet In Womens 3-201 . Beck LAM, 5 700 PO Box Medical 15[address], [address], [facility] [place], 120, [id number], [facility] [place], tel:[phone] , [place]. tel: [phone] Family History Family Member Diagnosis Age At [...] Authorization(s) [employer] [place]- Medicaid MC [id number] [employer] [place] - Medicaid MC [id number] Social History Type Description Quantity Date Captured Alcohol Use Details No Caffeine Use Details Unknown Tobacco Use Status Never smoked tobacco Smoking Status Never smoker Vital Signs Date / Height Weight BMI Pulse Blood Temperature Respiratory Body Head BMI Time: Rate Pressure Rate Surface Circumference percentile Area 62.50 207.20 37.2 in lbs 9 mm[Hg] 10:53 kg/m AM eter (2) Chief Complaint And Reason For Visit Unknown Chief Complaint And Reason For Visit Reason For Referral Reason For Referral Unknown Plan Of Care Date Type Action Status Appointment Lisa Azar BOOKED Appointment Lisa Azar BOOKED Appointment Lisa Azar BOOKED Appointment Lisa Azar BOOKED Appointment Lisa Azar BOOKED Appointment Lisa Azar [facility] R C/S, PPTL BOOKED Future Order: Radiology Order OB Detailed Complete Ultrasound Ordered ([id number]) Future Order: Radiology Order Biophysical Profile without NST Ordered ([id number]) Future Order: Radiology Order Umbilical Artery Echo ([id number]) Ordered Future Order: Radiology Order Biophysical Profile without NST Ordered ([id number]) Future Order: Radiology Order Umbilical Artery Echo ([id number]) Ordered Future Order: Radiology Order Ultrasound OB Follow-up ([id number]) Ordered Future Order: Radiology Order Biophysical Profile without NST Ordered ([id number]) Future Order: Lab Order Pap Smear With HPV Reflex If ASCUS Ordered ([id number]) Date Type Problem Goal Intervention Status Start Date Unknown. History Of Present Illness Encounter Date Complaint History Of Present Illness hx of PRES Sonogram - Images and report reviewed. 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 OB history - P3003 - TCD x3. Best EDC by LMP and 27 week sonogram; states she had an earlier sonogram. Declined amniocentesis at [facility] consult. Pt on LDA. 28 yo P3003 - ; Recommend head Functional Status Encounter Date Functional Assessment Cognitive [...]
--- OUTSIDE RECORDS SUMMARY | 2017-12-17 05:25 | External Medical Summary | Continuity of Care Document ---
:1991 Author Organization [facility] Address [address] [place], [place] [id number] Phone Care Team Providers Name Role Phone [facility] Unavailable Allergies, Adverse Reactions, Alerts Substance [...] Rhym, 3rd Tri, Unsp Procedures Procedure Date OB Visit No Charge Results Test Name Date and Time Measure Units Reference Range Abnormal Flag Comments Unknown Advance Directives Directive Yes / No Effective Date File Name Unknown Encounters Encounter Practice Location Reason(s) Diagnoses Date Provider Care Team Description For Visit Members [facility] Gestational htn Owen Referring In Womens Ultrasound w/o significant 0-201 Viki. Provider: Beck LAM, proteinuria, [address] [place] PO Box third Hai, Sobbing L, 1522, trimesterGestatio [place], 700 [place], nal diabetes [place], Medical [place], mellitus in [id number] [place] [id number], , diet , [place]. Drive controlledMaterna tel: [address], tel:[phone] l care for [id number] Riaz 737022 (suspected) [place], [address]. damage to fetus tel:[phone] by drugs, [id number] unspMatern Care For Abnlt Fetl Hrt Rate Or Rhym, 3rd Tri, Unsp [facility] Suprvsn of preg w James Referring In Womens Ultrasound poor reprodctv or 0-201 Nick. Provider: Beck LAM, obstet hx, third [address] [place] PO Box triMaternal care Karen Vallesbing L, 1522, for (suspected) [place], 700 [place], damage to fetus [place], Medical [place], by drugs, [id number] [place] [id number], unspMatern Care , [place]. Drive US For Abnlt Fetl tel: [address], tel:[phone] Hrt Rate Or Rhym, [id number] Riaz, 3rd Tri, Unsp34 [place], [address]. weeks gestation tel:[phone] of [phone] Sarah Mello Supervision of Sobbing In Womens other high risk 6-201 [place]. Beck LAM, pregnancies, 8 700 PO Box third Medical 1522, trimesterGestatio Center [place], nal htn w/o Drive, [place], significant [address] [id number], proteinuria, 120, US third Riaz, tel:+ trimesterGestatio [place], nal diabetes [address], mellitus in [place]. , diet tel: controlledPreviou [phone] s Low Transverse Associates Riaz Supervision of Sobbing In Womens other high risk 5-201 [place]. Health PA, pregnancies, 8 700 PO Box third Medical 1522, trimesterGestatio Center [place], nal htn w/o Drive, [place], significant [id number], proteinuria, 120, US third Mello, tel:[phone] trimesterGestatio [place], nal diabetes [address], mellitus in [place]. , diet tel: controlledPreviou [phone] s Low Transverse [facility] w Nov- Weaver Referring In Womens Ultrasound poor reprodctv or 2-201 Viki. Provider: Beck LAM obstet hx, third 8 [address] [place] PO Box triSupervision of Manjula Valles L, 1522, other high risk [place], 700 [place], pregnancies, [place], Medical [place], third [id number] Center [id number], trimesterPrevious , US. Drive Low Transverse tel: [address], tel: C-SectionMaternal [phone] [place], [place], [address]. (suspected) tel: damage to fetus [phone] by drugs, unsp [facility] of [facility] w Jacob Referring In Womens Ultrasound poor reprodctv or 2-201 Nick. Provider: Beck LAM, obstet hx, third [address] [place] PO Box triMaternal care Manjula Valles L, 1522, for (suspected) [place], 700 [place], damage to fetus [place], Medical [place], by drugs, [id number] [place] [id number], unspMatern care , US. Drive US for oth or susp tel: [address], tel:[phone] poor fetl grth, [id number] M[place], third tri, unsp30 [place], [address]. weeks gestation tel: of [phone] Associates Riaz Supervision of Ethan-2 Sobbing In Womens other high risk [place]. Beck LAM, pregnancies, 8 700 PO Box third Medical 1522, trimesterGestatio Center [place], nal htn w/o Drive, [place], significant [address] [id number], proteinuria, 120, US third trimester [place], tel:[phone] [place], [address], [place]. tel: [phone] Sarah Mello Gestational htn Ethan-2 Sobbing In Womens Ultrasound w/o significant [place]. Health PA, proteinuria, 8 700 PO Box third Medical 1522, trimesterPrevious Center [place], Low [address], [place], C-SectionMaternal [address] [id number], care for 120, US (suspected) Mello, tel:+[phone] damage to fetus [place], by drugs, unsp30 [address], weeks gestation US. of tel: [phone] Sarah Mello Supervision of Ethan-1 Sobbing Referring In Womens other high risk [place]. Provider: Beck LAM, pregnancies, 8 700 [place]rick PO Box third Medical Sobbing L, 1522, trimesterPrevious Center 700 [place], Low Transverse [facility], [facility], C-SectionObesity Suite Center [id number], complicating 120, Drive US , third M[place], [address], tel:+ [id number] weeks [place], [place], [place] [address], [place], [address]. [place]. tel: tel: [phone] Associates SAUM[facility] Tenorio of preg w Ethan-0 James Referring In Womens Ultrasound poor reprodctv or Nick. Provider: Beck LAM, obstet hx, second 8 [address] [place] PO Box triPrevious Low Hai, Sobbing L, 1522, Transverse [place], 700 [place], C-SectionMaternal [place], Medical [place], care for [id number] Center [id number], (suspected) , US. Drive US damage to fetus tel: [address], tel:[phone] by drugs, unsp27 [id number] [place], [place], [address]. of tel:[phone] [facility] [place] Suprvsn of preg w Ethan-0 Jamse Referring In Womens Ultrasound poor reprodctv or Nick. Provider: Beck LAM, obstet hx, second 8 [address] [place] PO Box triPrevious Low Hai, Sobbing L, 1522, Transverse [place], 700 [place], C-SectionMaternal [place], [facility], care for [id number] Center [id number], (suspected) , US. Drive damage to fetus tel: [address], tel: by drugs, [id number] [place], 639652 [place], [address]. complicating tel: , second [phone] trimester Associates Riaz Supervision of Sobbing In Womens other high risk - Derrick. Beck LAM, pregnancies, 8 700 PO Box second Medical 1522, trimesterPrevious Center [place], Low [address], [place], C-Apcenqi37 weeks [address] [id number], gestation of 120, US Mello, tel: [place], [address], [place]. tel: [phone] Sarah Mello Dec- Sweet In Womens 4-201 . Beck LAM, 5 700 PO Box Medical 15[address], [place] [address] Ana, [facility], 120, [id number], [facility] [place], tel: [phone] , [place]. tel: [phone] Sarah Mello Nov- Sweet In Womens 3-201 . Beck LAM, 5 700 PO Box Medical 1522, [place] [address] Ana, [facility], 120, [id number], [facility] [place], tel: [phone] [address] , [place]. tel: [phone] Family History Family Member Diagnosis Age At [...] Record Payers Payer name Insurance type Covered constitution party ID Authorization(s) [employer] [place]- Medicaid MC [id number] [employer] [place] - Medicaid MC [id number] Social History Type Description Quantity Date Captured Alcohol Use Details No Caffeine Use Details Unknown Tobacco Use Status Unknown Smoking Status Never smoker Vital Signs Date / Height Weight BMI Pulse Blood Temperature Respiratory Body Head BMI Time: Rate Pressure Rate Surface Circumference percentile Area 37.6 117/77 -2018 lbs 5 mm[Hg] 8:52 kg/m AM eter (2) 37.6 lbs 5 8:51 kg/m AM eter (2) Chief Complaint And Reason For Visit Unknown Chief Complaint And Reason For Visit Reason For Referral Reason For Referral Unknown Plan Of Care Date Type Action Status Appointment Lisa Azar [facility] [place], PPTL BOOKED Future Order: Radiology Order OB Detailed Complete Ultrasound Ordered ([id number]) Future Order: Radiology Order Biophysical Profile without NST Ordered ([id number]) Future Order: Radiology Order Umbilical Artery Echo ([id number]) Ordered Future Order: Radiology Order Biophysical Profile without NST Ordered ([id number]) Future Order: Radiology Order Umbilical Artery Echo ([id number]) Ordered Future Order: Radiology Order Ultrasound OB Follow-up ([id number]) Ordered Future Order: Radiology Order Biophysical Profile without NST Ordered ([id number]) Future Order: Radiology Order Umbilical Artery Echo ([id number]) Ordered Future Order: Radiology Order Ultrasound OB Follow-up ([id number]) Ordered Future Order: Radiology Order Biophysical Profile without NST Ordered ([id number]) Future Order: Lab Order Pap Smear With [...]
--- OUTSIDE RECORDS SUMMARY | 2017-12-17 05:26 | External Medical Summary | Continuity of Care Document ---
:1991 Author Organization [facility] Address [address] [place], [place] [id number] Phone Care Team Providers Name Role Phone [facility] Unavailable Allergies, Adverse Reactions, Alerts Substance Reaction Severity Status No Known Drug Allergies Unknown Active Medications Medication Instructions Dosage Effective Dates Status Comments (start - stop) aspirin 81 mg take 1 tablet by [...] drugs, unsp 27 weeks gestation of - Supervision of other high risk - pregnancies, third trimester Previous Low Transverse - Obesity complicating , third - trimester 28 weeks gestation of - Procedures Procedure Date Initial OB Visit No Charge - 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 Provider: Beck LAM, pregnancies, 8 700 [place]rick PO Box third Medical Sob[place] L, 1522, trimesterPrevious Center 700 [place], Low Transverse [facility], C-SectionObesity Suite Center [id number], complicating 120, Drive [place] , third Mello, [address], tel:[phone] [id number] weeks [place], [place] [address], [place], [address]. [place]. tel: tel: [phone] [facility] Monan of preg w Oct- James Referring In Womens Ultrasound poor reprodctv or [facility]. Provider: Beck LAM obstet hx, second [address] [place] PO Box triPrevious [place], Sobbing L, 1522, Transverse [place], 700 [place], C-SectionMaternal [facility], care for [id number] Center [id number], (suspected) , US. Drive US damage to fetus tel: [address], tel:[phone] by drugs, unsp27 [id number] [place], [place], [address]. of tel:[phone] Associates Kirsten Dunnn of preg w Oct-0 James Referring In Womens Ultrasound poor reprodctv or [facility]. Provider: Beck LAM, obstet hx, second [address] [place] PO Box triPrevious Low Hai, Sobbing L, 1522, Transverse [place], 700 [place], C-SectionMaternal [facility], care for [id number] Center [id number], (suspected) , US. Drive US damage to fetus tel: [address], tel:[phone] by drugs, [id number] [place], [place], [address]. complicating tel:+ , second [phone] trimester Associates Riaz Supervision of Sobbing In Womens other high risk 1- Derrick. Health PA, pregnancies, 8 700 PO Box second Medical 1522, trimesterPrevious Center [place], Low [address], [place], C-Lbbxnba23 weeks Suite , gestation of 120, [place], [place]:+ [place], [address], [place]. tel: [phone] Sarah Mello Sweet In Womens 4-201 . Health PA, 5 700 PO Box Medical [address], [place] [address] Ana, [facility] [place], 120, [id number], [place], [place], tel: [phone] 121570 , [place]. tel: [phone] Sarah Mello Sweet In Womens 3-201 . Health PA, 5 700 PO Box Medical [address], [place] [address] [place], [facility], 120, , [facility] [place], tel:[phone] , [place]. tel: [phone] Family History Family Member Diagnosis Age At [...] Authorization(s) [employer] [place]- Medicaid MC [id number] [employer] [place] - Medicaid MC [id number] Social History Type Description Quantity Date Captured Alcohol Use Details No Caffeine Use Details Unknown Tobacco Use Status Never smoked tobacco Smoking Status Never smoker Non-Smoking Tobacco Use : No Details Available : No Details Available Details Vital Signs Date / Height Weight BMI Pulse Blood Temperature Respiratory Body Head BMI Time: Rate Pressure Rate Surface Circumference percentile Area 208.20 37.4 130/77 -2018 lbs 7 mm[Hg] 2:53 kg/m PM eter (2) Chief Complaint And Reason For Visit Unknown Chief Complaint And Reason For Visit Reason For Referral Reason For Referral Unknown Plan Of Care Date Type Action Status Appointment Lisa Azar- 3 HR GTT BOOKED Appointment Lisa Azar BOOKED Appointment Lisa Azar BOOKED Appointment Lisa Azar BOOKED Appointment Lisa Azar BOOKED Appointment Lisa Azar BOOKED Appointment Lisa Azar BOOKED Appointment Lisa Azar BOOKED Appointment Lisa Azar BOOKED Appointment Lisa Azar BOOKED Future Order: Radiology Order OB Detailed Complete Ultrasound Ordered ([id number]) Future Order: Radiology Order Biophysical Profile without NST Ordered ([id number]) Future Order: Radiology Order Umbilical Artery Echo ([id number]) Ordered Future Order: Lab Order Pap Smear With [...]
--- OUTSIDE RECORDS SUMMARY | 2017-12-17 05:26 | External Medical Summary | Continuity of Care Document ---
:1990 Author Organization [facility] Address [address] [place], [place] [id number] Phone Care Team Providers Name Role Phone [facility] Unavailable Allergies, Adverse Reactions, Alerts Substance Reaction [...] weeks gestation of - Procedures Procedure Date biophys prfl w/o nstress test UMBILICAL ARTERY ECHO MIDDLE CEREBRAL ARTERY ECHO Results Test Name Date and Time Measure Units Reference Range Abnormal Flag Comments Unknown Advance Directives Directive Yes / No Effective Date File Name Unknown Encounters Encounter Practice Location Reason(s) Diagnoses Date Provider Care Team Description For Visit Members Sarah Mello Supervision of Sobbing In Womens other high risk 6-201 [facility], pregnancies, 8 700 [address] third Medical 1522, trimesterGestatio [facility] [place], nal htn w/o Drive, [place], significant [address] [id number], proteinuria, 120, [place] third [place], tel:[phone] trimesterGestatio [place], nal diabetes [address], mellitus in [place]. , diet tel: controlledPreviou [phone] s Low [facility] Riaz Supervision of Sobbing In Womens other high risk 5-201 [place] [place], pregnancies, 8 700 PO Box third Medical 1522, trimesterGestatio Center [place], nal htn w/o Drive, [place], significant [id number], proteinuria, 120, US third [place], tel:[phone] trimesterGestatio [place], nal diabetes [address], mellitus in [place]. , diet tel: controlledPreviou [phone] s Low [facility] Ifeanyi Dunnn of preg w Owen Referring In Womens Ultrasound poor reprodctv or 2-201 Viki. Provider: Health PA, obstet hx, third 8 [address] [facility] Box triSupervision of Manjula Valles L, 1522, other high risk [place], 700 [place], [place], [place], Medical [place], third [id number] Center [id number], trimesterPrevious , [place]. Drive Low Transverse tel: [address], tel:[phone] C-SectionMaternal [phone] [place], [place], [address]. (suspected) tel: damage to fetus [phone] by drugs, unsp Associates [facility] Ifeanyi Dunnn of preg w Nov-0 Jacob Referring In Womens Ultrasound poor reprodctv or 2-201 Nick. Provider: Health CAROLE, obstet hx, third 8 [address] [place] PO Box triMaternal care Manjula Valles L, 1522, for (suspected) [place], 700 [place], damage to fetus [place], Medical [place], by drugs, [id number] [place] [id number], unspMatern care , [place]. Drive [place] for oth or susp tel: [address], tel:[phone] poor fetl grth, [id number] [place], third tri, [place]sp30 [place], [address]. weeks gestation tel: of [phone] Associates Riaz Supervision of Ethan-2 Sobbing In Womens other high risk [place]. [facility] [place], pregnancies, 8 700 PO Box third Medical 1522, trimesterGestatio Center [place], nal htn w/o Drive, [place], significant [address] [id number], proteinuria, 120, [place] third [place], [place], [address], [place]. tel: [phone] Sarah Mello Gestational htn Ethan-2 Sobbing In Womens Ultrasound w/o significant [place] [place], proteinuria, 8 700 PO Box third Medical 1522, trimesterPrevious Center [place], Low Transverse [facility], [place], C-SectionMaternal [id number], care for 120, [place] (suspected) Riaz, tel:+ damage to fetus [place], by drugs, unsp30 [address], weeks gestation [place]. of tel: [phone] Sarah Mello Supervision of Ethan-1 Sobbing Referring In Womens other high risk [place]. Provider: Health PA, pregnancies, 8 700 [place] [address] [place] third Medical Sobbing L, 1522, trimesterPrevious Center 700 [place], Low Transverse [facility], [facility], C-SectionObesity Suite Center [id number], complicating 120, Drive [place] , third [place], [address], tel:[phone] [id number] weeks [place], [place] [address], [place], [address]. [place]. tel: tel: [phone] Associates [facility] Carlieshantell of preg w Ethan-0 James Referring In Womens Ultrasound poor reprodctv or Nick. Provider: Health CAROLE, obstet hx, second [address] [place] PO Box triPrevious Low [place], Sobbing L, 1522, Transverse [place], 700 [place], C-SectionMaternal [facility] Medical [place], care for [id number] Center [id number], (suspected) , [place]. Drive [place] damage to fetus tel: [address], tel:[phone] by drugs, unsp27 [phone] [place], [address]. of tel:[phone] [facility] Suprvsn of preg w Ethan-0 James Referring In Womens Ultrasound poor reprodctv or Nick. Provider: Beck LAM, obstet hx, second 8 [address] [facility] Box triPrevious Low [place], Sobbing L, 1522, Transverse [place], 700 [place], C-SectionMaternal [place], [facility], care for [id number] Center [id number], (suspected) , [place]. Drive damage to fetus tel: [address], tel: by drugs, [phone] [place], [place], [address]. complicating tel: , second [phone] trimester Associates Riaz Supervision of Sobbing In Womens other high risk [place]. Beck LAM, pregnancies, 8 700 PO [place] second Medical 1522, trimesterPrevious [facility], Low [address], [place], C-Meyycwa07 weeks [id number], gestation of 120, [place], [place]: [place], [address], [place]. tel: [phone] Sarah Mello Sweet In Womens 4-201 . Beck LAM, 5 700 [facility] [address], [address] Ana, [facility] [place], 120, [id number], [facility] [place], tel: [phone] , [place]. tel: [phone] Sarah Mello Sweet In Womens 3-201 . Beck LAM, [address] [facility] 15[address], [address] [place], [facility] [place], 120, [id number], [place], [place], tel:[phone] , [place]. tel: [phone] Family History Family Member Diagnosis Age At [...] Authorization(s) [employer] [place]- Medicaid MC [id number] [employer] [place] Medicaid MC [id number] Social History Type Description Quantity Date Captured [...] Appointment Lisa Azar BOOKED Appointment Lisa Azar [facility]/S, PPTL BOOKED Future Order: Radiology Order Biophysical Profile without NST Ordered ([id number]) Future Order: Radiology Order Umbilical Artery Echo ([id number]) Ordered Future Order: Radiology Order OB Detailed Complete Ultrasound Ordered ([id number]) Future Order: Radiology Order Biophysical Profile without NST Ordered ([id number]) Future Order: Radiology Order Umbilical Artery Echo ([id number]) Ordered Future Order: Radiology Order Ultrasound OB Follow-up ([id number]) Ordered Future Order: Radiology Order Biophysical Profile without NST Ordered ([id number]) Future Order: Lab Order Pap Smear With [...]
--- OUTSIDE RECORDS SUMMARY | 2017-12-17 05:26 | External Medical Summary | Continuity of Care Document ---
:1990 Author Organization [facility] Address [address] [place], [place] [phone] Phone Care Team Providers Name Role Phone [facility] Unavailable Allergies, Adverse Reactions, Alerts Substance Reaction [...] weeks gestation of - Procedures Procedure Date Lab Only Visit - No Charge Results Test Name Date and Time Measure Units Reference Range Abnormal Flag Comments Unknown Advance Directives Directive Yes / No Effective Date File Name Unknown Encounters Encounter Practice Location Reason(s) Diagnoses Date Provider Care Team Description For Visit Members Associates [facility] Supervision of Sobbing In Womens other high risk 5-201 [facility], pregnancies, 8 700 PO Box [facility] Medical 1522, trimesterGestatio [place], nal htn w/o [place], [place], significant [address] [id number], proteinuria, 120, US richard M[place], tel:[phone] [place]Gestatio [place], [address] nal diabetes [address], mellitus in [place]. , diet tel: controlledPreviou [phone] s Low Transverse Associates [facility] Suprvsn of preg w Nov-0 Weaver Referring In Womens Ultrasound poor reprodctv or 201 Viki. Provider: Beck LAM, obstet hx, third [address] [place] PO Box triSupervision of Manjula Valles L, 1522, other high risk [place], 700 [place], pregnancies, [place], Medical [place], third [id number] Center [id number], trimesterPrevious , US. Drive US Low Transverse tel: [address], tel:[phone] C-SectionMaternal [phone] [place], [place], [address]. (suspected) tel: damage to fetus [phone] by drugs, unsp [facility] Nov- Jacob Referring In Womens Ultrasound poor reprodctv or Nick. Provider: Beck LAM obstet hx, third [address] [place] PO Box triMaternal care Manjula Valles L, 1522, for (suspected) [place], 700 [place], damage to fetus [place], Medical [place], by drugs, [id number] Center [id number], unspMatern care , [place]. Drive US for oth or susp tel: [address], tel:[phone] poor fetl grth, [id number] [place], third tri, [place]sp30 [place], [address]. weeks gestation tel: of [phone] Associates Riaz Supervision of Ethan-2 Sobbing In Womens other high risk [place]. Health CAROLE, pregnancies, 8 700 PO Box third Medical 1522, trimesterGestatio Center [place], nal htn w/o Drive, [place], significant [address] [id number], proteinuria, 120, US third trimester [place], [place], [address], [place]. tel: [phone] Sarah Mello Gestational htn Ethan-2 Sobbing In Womens Ultrasound w/o significant [place]. Health CAROLE, proteinuria, 8 700 PO Box third Medical 1522, trimesterPrevious Center [place], Low Transverse [place], [place], C-SectionMaternal [address] [id number], care for 120, US (suspected) Riaz, tel: damage to fetus [place], by drugs, unsp30 [address], weeks gestation [place]. of tel: [phone] Sarah Mello Ethan-2 Sobbing In Womens 2-201 [place]. Health PA, 8 700 PO Box Medical 1522, Center [place], Drive, [place], [address] [id number], 120, [place], [place], [address], [place]. tel: [phone] Sarah Mello Supervision of Oct- Sobbing Referring In Womens other high risk 4-201 [place]. Provider: Health [place], pregnancies, 8 700 [place] PO Box third Medical Sobbing L, 1522, trimesterPrevious Center 700 [place], Low Transverse [facility], C-SectionObesity Suite Center [id number], complicating 120, Drive [place] , third [place], [address], tel: [id number] weeks [place], [place], [place] [address], [place], [address]. [place]. tel: tel: [phone] [facility] Ifeanyi Dunnn of preg w Ethan-0 James Referring In Womens Ultrasound poor reprodctv or Nick. Provider: Beck LAM, obstet hx, second 8 3232 E [facility] Box triPrevious Low [place], Sobbing L, 1522, Transverse [place], 700 [place], C-SectionMaternal [facility], care for [id number] Center [id number], (suspected) , [place]. Drive [place] damage to fetus tel: [address], tel: by drugs, unsp27 [id number] [place], [place], [address]. of tel:[phone] Associates [facility] Ifeanyi Sextonvsn of preg w Ethan-0 James Referring In Womens Ultrasound poor reprodctv or Nick. Provider: Beck LAM, obstet hx, second 8 3232 E [facility] Box triPrevious Low [place], Sobbing L, 1522, Transverse [place], 700 [place], C-SectionMaternal [facility], care for [id number] Center [id number], (suspected) , [place]. Drive damage to fetus tel: [address], tel: by drugs, [id number] [place], 284635 [place], [address]. complicating tel: , second [phone] trimester Associates Riaz Supervision of Sobbing In Womens other high risk 1-201 [place]. Health [place], pregnancies, 8 700 PO Box second Medical 1522, trimesterPrevious Center [place], Low [address], [place], C-Xxfwmon35 weeks [id number], gestation of 120, [place], [place]: [place], [address], [place]. tel: [phone] Sarah Mello Sweet In Womens 4-201 . Health [place], 5 700 PO Box Medical 15[address], [place] [address] Ana, [facility] [place], 120, [id number], [facility] [place], tel: [phone] , [place]. tel: [phone] Sarah Mello Sweet In Womens 3-201 . Health [place], 5 700 PO Box Medical [address], [place] [address] Ana, [facility] [place], 120, [id number], [facility] [place], tel:[phone] , [place]. tel: [phone] Family History Family Member Diagnosis Age At [...] Record Payers Payer name Insurance type Covered alliance party ID Authorization(s) [employer] [place]- Medicaid MC [id number] [employer] [place] Medicaid MC [id number] Social History Type Description Quantity Date Captured [...] Appointment Lisa Azar BOOKED Appointment Lisa Azar [facility] R C/S, PPTL BOOKED Future Order: Radiology Order OB Detailed Complete Ultrasound Ordered ([id number]) Future Order: Radiology Order Biophysical Profile without NST Ordered ([id number]) Future Order: Radiology Order Umbilical Artery Echo ([id number]) Ordered Future Order: Radiology Order Biophysical Profile without NST Ordered ([id number]) Future Order: Radiology Order Umbilical Artery Echo ([id number]) Ordered Future Order: Radiology Order Ultrasound OB Follow-up ([id number]) Ordered Future Order: Radiology Order Biophysical Profile without NST Ordered ([id number]) Future Order: Lab Order Pap Smear With [...]
--- OUTSIDE RECORDS SUMMARY | 2017-12-17 05:26 | External Medical Summary | Continuity of Care Document ---
:1990 Author Organization [facility] Address [address] [place], [place] [phone] Phone Care Team Providers Name Role Phone [facility] Unavailable Allergies, Adverse Reactions, Alerts [...] Active Vitamin tablet oral route every day OneTouch Verio test 1 Drop by Not Available - No Longer gestational strips Intradermal route Active Diab. O24.410 4 times every day fasting and postprandial lancets 33 test 4 times - No Longer gauge daily Active Problems Condition Effective Dates (start - stop) Clinical Status Supervision of other high risk - pregnancies, third trimester Previous Low Transverse - Obesity complicating , third - trimester 28 weeks gestation of - Supervision of other [...] damage - to fetus by drugs, unsp Gestational htn w/o significant - proteinuria, third trimester Previous Low Transverse - Maternal care for (suspected) damage - to fetus by drugs, unsp 30 weeks gestation of - Procedures Procedure Date Immuniz admnin, 1 vac, sngl/combo 19 Yrs + TDAP VACCINE >7 IM OB Visit No Charge Results Test Name Date and Time Measure Units Reference Range Abnormal Flag Comments Panel Description: CBC With Differential/Platelet WBC 14:24:00 9.9 x10E3/uL 3.4-10.8 RBC 14:24:00 3.95 x10E6/uL 3.77-5.28 Hemoglobin 14:24:00 11.9 g/dL 11.1-15.9 Hematocrit 14:24:00 36.3 % 34.0-46.6 MCV 14:24:00 92 fL 79-97 MCH 14:24:00 30.1 pg 26.6-33.0 MCHC 14:24:00 32.8 g/dL 31.5-35.7 RDW 14:24:00 14.0 % 12.3-15.4 Platelets 14:24:00 217 x10E3/uL 150-379 Neutrophils 14:24:00 80 % Not Estab. Lymphs 14:24:00 17 % Not Estab. Monocytes 14:24:00 3 % Not Estab. Eos 14:24:00 0 % Not Estab. Basos 14:24:00 0 % Not Estab. Immature Cells 14:24:00 Neutrophils (Absolute) 14:24:00 7.9 x10E3/uL 1.4-7.0 H Lymphs (Absolute) 14:24:00 1.7 x10E3/uL 0.7-3.1 Monocytes(Absolute) 14:24:00 0.3 x10E3/uL 0.1-0.9 Eos (Absolute) 14:24:00 0.0 x10E3/uL 0.0-0.4 Baso (Absolute) 14:24:00 0.0 x10E3/uL 0.0-0.2 Immature Granulocytes 14:24:00 0 % Not Estab. Immature Grans (Abs) 14:24:00 0.0 x10E3/uL 0.0-0.1 NRBC 14:24:00 Hematology Comments: 14:24:00 Panel Description: Glucose [Mass/volume] in Serum or Plasma --1 hour post 50 g glucose PO Gestational Diabetes Screen 14:24:00 162 mg/dL 65-135 H Advance Directives Directive Yes / No Effective Date File Name Unknown Encounters Encounter Practice Location Reason(s) Diagnoses Date Provider Care Team Description For Visit Members Sarah Mello Supervision of Nov-0 Sobbing In Womens other high risk 5-201 [place], pregnancies, 8 700 PO Box third Medical 1522, trimesterGestatio [facility] [place], nal htn w/o [place], [place], significant [address] [id number], proteinuria, 120, [place] third [place], tel:+ trimesterGestatio [place], nal diabetes [address], mellitus in [place]. , diet tel: controlledPreviou [phone] s Low Transverse Associates Riaz Nov- Manjula In Womens 3-201 [place]. [facility] [place], 8 700 PO Box Medical 1522, [place], [place], Suite , 120, [place] R[place], [place]: [place], [address], [place]. tel: [phone] Associates [facility] Tenorio of preg w Nov-0 Owen Referring In Womens Ultrasound poor reprodctv or -201 Viki. Provider: Beck LAM, obstet hx, third 8 [address] E [facility] Box triSupervision of [place]ula taylor L, 1522, other high risk [place], 700 [place], pregnancies, [place], Medical [place], third Center , trimesterPrevious , US. Drive US Low Transverse tel: [address], tel:[phone] C-SectionMaternal [id number] [place], [place], [address]. (suspected) tel: damage to fetus [phone] by drugs, unsp Associates [facility] Tenorio of preg w Nov-0 Jacob Referring In Womens Ultrasound poor reprodctv or -201 Nick. Provider: Beck LAM, obstet hx, third 8 [address] E [facility] Box triMaternal care Manjula Valles L, 1522, for (suspected) [place], 700 [place], damage to fetus [place], Medical [place], by drugs, [id number] Center [id number], unspMatern care , US. Drive US for oth or susp tel: [address], tel: poor fetl grth, [phone] Riaz, third tri, unsp30 [place], [address]. weeks gestation tel: of [phone] Associates Riaz Supervision of Ethan-2 Sobbing In Womens other high risk [place]. Health CAROLE, pregnancies, 8 700 PO Box third Medical 1522, trimesterGestatio Center [place], nal htn w/o [place], [place], significant [address] [id number], proteinuria, 120, US third trimester [place], [place], [address], [place]. tel: [phone] Sarah Mello Gestational htn Ethan-2 Sobbing In Womens Ultrasound w/o significant [place]. Health CAROLE, proteinuria, 8 700 PO Box third Medical 1522, trimesterPrevious Center [place], Low Transverse [place], [place], C-SectionMaternal Suite , care for 120, US (suspected) Riaz, tel: damage to fetus [place], by drugs, unsp30 [address], weeks gestation [place]. of tel: [phone] Sarah Mello Supervision of Ethan-1 Sobbing Referring In Womens other high risk [place]. Provider: Beck LAM, pregnancies, 8 700 [place] PO Box third Medical Sobbing L, 1522, trimesterPrevious Center 700 [place], Low Transverse [facility], C-SectionObesity Suite Center [id number], complicating 120, Drive [place] , third [place], [address], tel: [id number] weeks [place], [place] [address], [place], [address]. [place]. tel: tel: [phone] Associates SA[facility] Sextonvsn of preg w Ethan-0 James Referring In Womens Ultrasound poor reprodctv or Nick. Provider: Beck LAM, obstet hx, second 8 [address] [place] PO Box triPrevious Low [place], Sobbing L, 1522, Transverse [place], 700 [place], C-SectionMaternal [facility], care for [id number] Center [id number], (suspected) , US. Drive US damage to fetus tel: [address], tel: by drugs, unsp27 [id number] [place], [place], [address]. of tel:[phone] Associates [facility] Tenorio of preg w Ethan-0 James Referring In Womens Ultrasound poor reprodctv or Nick. Provider: Beck LAM, obstet hx, second 8 [address] [place] PO Box triPrevious Low [place], Sobbing L, 1522, Transverse [place], 700 [place], C-SectionMaternal [place], [facility], care for [id number] Center [id number], (suspected) , US. Drive US damage to fetus tel: [address], tel:[phone] by drugs, [id number] [place], [place], [address]. complicating tel: , second [phone] trimester Associates Riaz Supervision of Sobbing In Womens other high risk [place]. [facility] [place], pregnancies, 8 700 PO Box second Medical 1522, trimesterPrevious [facility], Low [address], [place], C-Pnwymbl51 weeks Suite , gestation of 120, [place], [place]: [place], [address], [place]. tel: [phone] Sarah Mello Sweet In Womens 4-201 . Beck LAM, 5 700 PO Box Medical [address], [address], [facility], 120, , [place], [place], tel: [phone] , [place]. tel: [phone] Sarah Mello Sweet In Womens 3-201 . Beck LAM, 5 700 PO Box Medical [address], [address], [facility], 120, , [place], [place], tel: [phone] , [place]. tel: [phone] Family History Family Member Diagnosis Age At [...] Authorization(s) [employer] [place]- Medicaid MC [id number] [employer] [place] Medicaid MC [id number] Social History Type Description Quantity Date Captured Alcohol Use Details No Caffeine Use Details Unknown Tobacco Use Status Unknown Smoking Status Never smoker Vital Signs Date / Height Weight BMI Pulse Blood Temperature Respiratory Body Head BMI Time: Rate Pressure Rate Surface Circumference percentile Area 37.3 -2018 6 1:25 kg/m PM eter (2) 209.10 37.6 140/96 -2018 lbs 3 mm[Hg] 1:44 kg/m PM eter (2) Chief Complaint And Reason For Visit Unknown Chief Complaint And Reason For Visit Reason For Referral Reason For Referral Unknown Plan Of Care Date Type Action Status Appointment Lisa Azar BOOKED Appointment Lisa Azar BOOKED Appointment Lisa Azar BOOKED Appointment Lisa Azar BOOKED Appointment Lisa Azar BOOKED Appointment Lisa Azar BOOKED Appointment Lisa Azar BOOKED Appointment Lisa Azar [facility] [place] C/S, PPTL BOOKED Future Order: Radiology Order OB Detailed Complete Ultrasound Ordered ([id number]) Future Order: Radiology Order Biophysical Profile without NST Ordered ([id number]) Future Order: Radiology Order Umbilical Artery Echo ([id number]) Ordered Future Order: Radiology Order Biophysical Profile without NST Ordered ([id number]) Future Order: Radiology Order Umbilical Artery Echo ([id number]) Ordered Future Order: Radiology Order Ultrasound OB Follow-up ([id number]) Ordered Future Order: Radiology Order Biophysical Profile without NST Ordered ([id number]) Future Order: Lab Order Pap Smear With [...]
--- OUTSIDE RECORDS SUMMARY | 2017-12-17 05:26 | External Medical Summary | Continuity of Care Document ---
:1990 Author Organization [facility] [employer] [facility] Address [address] [place], [place] [phone] Phone Care Team Providers Name Role Phone [facility] Unavailable Allergies, Adverse Reactions, Alerts [...] Sobbing In Womens other high risk 6-201 [facility] [place], pregnancies, 8 700 PO Box [facility] Medical 1522, trimesterGestatio [facility] h[facility] w/o [place], significant [id number], proteinuria, 120, US third [place], tel:+ trimesterGestatio [place], nal diabetes [address]167, mellitus in [place]. , diet tel: controlledPreviou [phone] s Low [facility] Riaz Supervision of Sobbing In Womens other high risk 5-201 Der[facility]. Health [place], pregnancies, 8 700 PO Box third Medical 1522, trimesterGestatio Center [place], nal htn w/o Drive, [place], significant [id number], proteinuria, 120, US third [place], tel:+ trimesterGestatio [place], nal diabetes 60[address], mellitus in [place]. , diet tel: controlledPreviou [phone] s Low Transverse Associates [facility] w Weaver Referring In Womens Ultrasound poor reprodctv or 2-201 Viki. Provider: Beck LAM obstet hx, third [address] triSupervision of Manjula Valles L, 1522, other high risk [place], 700 [place], pregnancies, [place], Medical [place], third [id number] Center [id number], trimesterPrevious , [place]. Drive Low Transverse tel: [address], tel: C-SectionMaternal [phone] [place], [address]. (suspected) tel: damage to fetus [phone] by drugs, unsp [facility] w Jacob Referring In Womens Ultrasound poor reprodctv or 2-201 Nick. Provider: Beck LAM obstet hx, third [address] triMaternal care Manjula Vallse L, 1522, for (suspected) [place], 700 [place], damage to fetus [place], Medical [place], by drugs, [id number] [place] [id number], unspMatern care , [place]. Drive [place] for oth or susp tel: [address], tel:[phone] poor fetl grth, [id number] [place], third tri, [place]sp30 [place], [address]. weeks gestation tel: of [phone] Sarah Mello Supervision of Ethan-2 Sobbing In Womens other high risk [place]. Health CAROLE, pregnancies, 8 700 PO Box third Medical 1522, trimesterGestatio Center [place], nal htn w/o Drive, [place], significant [id number], proteinuria, 120, US third [place], [place]:+ [place], [address], [place]. tel: [phone] Sarah Mello Gestational htn Ethan-2 Sobbing In Womens Ultrasound w/o significant [place]. Health CAROLE, proteinuria, 8 700 PO Box third Medical 1522, trimesterPrevious Center [place], Low Transverse [place], [place], C-SectionMaternal Suite , care for 120, US (suspected) Riaz, tel: damage to fetus [place], by drugs, unsp30 [address], weeks gestation [place]. of tel: [phone] Sarah Mello Ethan-2 Sobbing In Womens [place]. Beck LAM, 8 700 PO [facility] 1522, Center [place], [place], [id number], 120, [place], [place]:+ [place], [address], [place]. tel: [phone] Sarah Mello Supervision of Ethan-1 Sobbing Referring In Womens other high risk [place]. Provider: Beck LAM, pregnancies, 8 700 [facility] third Medical Sobbing L, 1522, trimesterPrevious Center 700 [place], Low Transverse [facility], [facility], C-SectionObesity Suite Center , complicating 120, Drive US , third [place], [address], tel:+ [id number] weeks [place] [address], [place], [address]. [place]. tel: tel: [phone] Associates SAUMYA Dunnn of preg w Ethan-0 James Referring In Womens Ultrasound poor reprodctv or Nick. Provider: Beck LAM, obstet hx, second 8 [address] [facility] Box triPrevious Low Hai, Sobbing L, 1522, Transverse [place], 700 [place], C-SectionMaternal [facility], care for [id number] Center [id number], (suspected) , US. Drive US damage to fetus tel: [address], tel: by drugs, unsp27 [id number] [place], [place], [address]. of tel:[phone] Associates SAUMYA Dunnn of preg w Ethan-0 James Referring In Womens Ultrasound poor reprodctv or Nick. Provider: Beck LAM, obstet hx, second [address] PO Box triPrevious Low [place], Sobbing L, 1522, Transverse [place], 700 [place], C-SectionMaternal [place], [facility], care for [id number] Center [id number], (suspected) , US. Drive US damage to fetus tel: [address], tel: by drugs, [phone] [place], [place], [address]. complicating tel: , second [phone] trimester Associates Riaz Supervision of Sobbing In Womens other high risk [place]. Health CAROLE, pregnancies, 8 700 PO Box second Medical 1522, trimesterPrevious [facility], Low [address], [place], C-Rwqzskc58 weeks [address] [id number], gestation of 120, [place], [place]: [place], [address], [place]. tel: [phone] Sarah Mello Dec- Sweet In Womens 4-201 . Beck LAM, 5 700 PO Box Medical [address], [address], [facility], 120, [id number], [place], [place], tel: [phone] , [place]. tel: [phone] Sarah Mello Sweet In Womens 3-201 . Beck LAM, 5 700 PO Box Medical 15[address], [address], [facility], 120, [id number], [place], [place], tel:[phone] , [place]. tel: [phone] Family History Family Member Diagnosis Age At [...] Authorization(s) [employer] [place] Medicaid MC [id number] [employer] [place] Medicaid MC [id number] Social History Type Description Quantity Date Captured [...] Appointment Lisa Azar BOOKED Appointment Lisa Azar [facility] R C/S, PPTL BOOKED Future Order: Radiology Order OB Detailed Complete Ultrasound Ordered ([id number]) Future Order: Radiology Order Biophysical Profile without NST Ordered ([id number]) Future Order: Radiology Order Umbilical Artery Echo ([id number]) Ordered Future Order: Radiology Order Biophysical Profile without NST Ordered ([id number]) Future Order: Radiology Order Umbilical Artery Echo ([id number]) Ordered Future Order: Radiology Order Ultrasound OB Follow-up ([id number]) Ordered Future Order: Radiology Order Biophysical Profile without NST Ordered ([id number]) Future Order: Lab Order Pap Smear With [...]
--- OUTSIDE RECORDS SUMMARY | 2017-12-17 05:26 | External Medical Summary | Continuity of Care Document ---
:1991 Author Organization [facility] [employer] [facility] Address [address] [place], [place] [phone] Phone Care Team Providers Name Role Phone [facility] Unavailable Allergies, Adverse Reactions, Alerts [...] 4 times every day fasting and postprandial Problems Condition Effective Dates (start - stop) [...] Sobbing In Womens other high risk 6-201 [facility] [place], pregnancies, 8 700 PO Box third Medical 1522, trimesterGestatio Center [place], nal htn w/o Drive, [place], significant [id number], proteinuria, 120, US third [place], tel:+[phone] trimesterGestatio [place], nal diabetes [address], mellitus in [place]. , diet tel: controlledPreviou [phone] s Low Transverse Associates Riaz Supervision of Sobbing In Womens other high risk 5-201 [facility]. [facility] [place], pregnancies, 8 700 PO Box third Medical 1522, trimesterGestatio Center [place], nal htn w/o Drive, [place], significant [id number], proteinuria, 120, US third [place], tel:[phone] trimesterGestatio [place], nal diabetes [address], mellitus in [place]. , diet tel: controlledPreviou [phone] s Low Transverse Associates [facility] w Owen Referring In Womens Ultrasound poor reprodctv or -201 Viki. Provider: Beck LAM, obstet hx, third [address] [place] PO Box triSupervision of Manjula Valles L, 152, other high risk [place], 700 [place], pregnancies, [place], Medical [place], third [id number] Center [id number], trimesterPrevious , US. Drive US Low Transverse tel: [address], tel:[phone] C-SectionMaternal [phone] [place], [place], [address]. (suspected) tel:[phone] damage to fetus [phone] by drugs, unsp [facility] w Jacob Referring In Womens Ultrasound poor reprodctv or -201 Nick. Provider: Beck LAM obstet hx, third [address] [place] PO Box triMaternal care Manjula Valles L, 1522, for (suspected) [place], 700 [place], damage to fetus [place], Medical [place], by drugs, [id number] Center [id number], unspMatern care , US. Drive US for oth or susp tel: [address], tel: poor fetl grth, [id number] [place], third tri, [place]sp30 [place], [address]. weeks gestation tel: of [phone] Associates Riaz Supervision of Ethan-2 Sobbing In Womens other high risk [place]. Health [place], pregnancies, 8 700 PO Box third Medical 1522, trimesterGestatio Center [place], nal htn w/o Drive, [place], significant [address] [id number], proteinuria, 120, US third trimester [place], [place], [address], [place]. tel: [phone] Sarah Mello Gestational htn Ethan-2 Sobbing In Womens Ultrasound w/o significant [place]. Health PA, proteinuria, 8 700 PO Box third Medical 1522, trimesterPrevious Center [place], Low Transverse [facility], [place], C-SectionMaternal [address] [id number], care for 120, US (suspected) Riaz, tel: damage to fetus [place], by drugs, unsp30 [address], weeks gestation [place]. of tel: [phone] Sarah Mello Supervision of Ethan-1 Sobbing Referring In Womens other high risk [place]. Provider: Health [place], pregnancies, 8 700 [facility] third Medical Sobbing L, 1522, trimesterPrevious Center 700 [place], Low Transverse [facility], [facility], C-SectionObesity Suite Center [id number], complicating 120, Drive US , third [place], [address], tel: [id number] weeks [place], [place] [address], [place], [address]. [place]. tel: tel: [phone] Associates SAUMYA Suggs Suprvsn of preg w Ethan-0 James Referring In Womens Ultrasound poor reprodctv or Nick. Provider: Health CAROLE, obstet hx, second [address] [place] PO Box triPrevious Low Hai, Sobbing L, 1522, Transverse [place], 700 [place], C-SectionMaternal [place], Medical [place], care for [id number] Center [id number], (suspected) , US. Drive US damage to fetus tel: [address], tel: by drugs, unsp27 [id number] [place], [place], [address]. of tel:[phone] Associates SAUMYA Tenorio of preg w Ethan-0 James Referring In Womens Ultrasound poor reprodctv or Nick. Provider: Beck LAM, obstet hx, second [address] [place] PO Box triPrevious Low Hai, Sobbing L, 1522, Transverse [place], 700 [place], C-SectionMaternal [place], [facility], care for [id number] Center [id number], (suspected) , US. Drive US damage to fetus tel: [address], tel: by drugs, [id number] [place], [place], [address]. complicating tel: , second [phone] trimester Associates Riaz Supervision of Sobbing In Womens other high risk [place]. Beck LAM, pregnancies, 8 700 PO Box second Medical 1522, trimesterPrevious [facility], Low [address], [place], C-Zgnhlxz26 weeks [id number], gestation of 120, [place], [place], [address], [place]. tel: [phone] Sarah Mello Sweet In Womens 4-201 . Beck LAM, 5 700 PO Box Medical 15[address], [address] Ana, [facility], 120, [id number], [facility] [place], tel:[phone] , [place]. tel: [phone] Sarah Mello Sweet In Womens 3-201 . Beck LAM, 5 700 PO Box Medical 15[address], [address] Ana, [facility], 120, [id number], [facility] [place], tel:[phone] , [place]. tel: [phone] Family History Family Member Diagnosis Age At [...] Authorization(s) [employer] [place]- Medicaid MC [id number] [employer] [place] Medicaid MC [id number] Social History Type Description Quantity Date Captured Alcohol Use Details No Caffeine Use Details Unknown Tobacco Use Status Unknown Smoking Status Never smoker Vital Signs Date / Height Weight BMI Pulse Blood Temperature Respiratory Body Head BMI Time: Rate Pressure Rate Surface Circumference percentile Area 206.80 37.2 / lbs 2 mm[Hg] 3:24 kg/m PM eter (2) Chief Complaint And Reason For Visit Unknown Chief Complaint And Reason For Visit Reason For Referral Reason For Referral Unknown Plan Of Care Date Type Action Status Appointment Lisa Azar BOOKED Appointment Lisa Azar BOOKED Appointment Lisa Azar BOOKED Appointment Lisa Azar BOOKED Appointment Lisa Azar BOOKED Appointment Lisa Azar NEC R C/S, PPTL BOOKED Future Order: Radiology Order OB Detailed Complete Ultrasound Ordered ([id number]) Future Order: Radiology Order Biophysical Profile without NST Ordered ([id number]) Future Order: Radiology Order Umbilical Artery Echo ([id number]) Ordered Future Order: Radiology Order Biophysical Profile without NST Ordered ([id number]) Future Order: Radiology Order Umbilical Artery Echo ([id number]) Ordered Future Order: Radiology Order Ultrasound OB Follow-up ([id number]) Ordered Future Order: Radiology Order Biophysical Profile without NST Ordered ([id number]) Future Order: Lab Order Pap Smear With [...]
--- OUTSIDE RECORDS SUMMARY | 2017-12-17 05:26 | External Medical Summary | Continuity of Care Document ---
:1991 Author Organization [facility] [employer] [facility] Address [address] [place], [place] [phone] Phone Care Team Providers Name Role [facility] Un[facility] Allergies, Adverse Reactions, Alerts Substance [...] Effective Dates (start - stop) Clinical Status Gestational htn w/o significant - proteinuria, third trimester Previous Low Transverse - Maternal care for (suspected) damage - to fetus by drugs, unsp 30 weeks gestation of - Supervision [...] weeks gestation of - Procedures Procedure Date Ultrasnd preg uterus, flwup/repeat biophys prfl w/o nstress test Results Test Name Date and Time Measure Units Reference Range Abnormal Flag Comments Unknown Advance Directives Directive Yes / No Effective Date File Name Unknown Encounters Encounter Practice Location Reason(s) Diagnoses Date Provider Care Team Description For Visit Members Sarah Mello Supervision of Sobbing In Womens other high risk 6-201 [facility], pregnancies, 8 700 PO Box third Medical 1522, trimesterGestatio Center [place], nal htn w/o Drive, [place], significant [address] [id number], proteinuria, 120, US third [place], tel:+316 trimesterGestatio [place], nal diabetes [address], mellitus in [place]. , diet tel: controlledPreviou [phone] s Low Transverse Associates Riaz Supervision of Sobbing In Womens other high risk 5-201 [facility]. Health PA, pregnancies, 8 700 PO Box third Medical 1522, trimesterGestatio Center [place], nal htn w/o Drive, [place], significant [address] [id number], proteinuria, 120, US third [place], tel:+2 trimesterGestatio [place], nal diabetes [address], mellitus in [place]. , diet tel: controlledPreviou [phone] s Low Transverse Associates SAUMYA Tenorio of preg w Nov-0 Owen Referring In Womens Ultrasound poor reprodctv or 2-201 Viki. Provider: Beck LAM, obstet hx, third [address] [place] Box triSupervision of Manjula Valles L, 1522, other high risk [place], 700 [place], pregnancies, [place], Medical [place], third [id number] Center [id number], trimesterPrevious , [place]. Drive Low Transverse tel: [address], tel:[phone] C-SectionMaternal [id number] [place], [place], [address]. (suspected) tel: damage to fetus [phone] by drugs, unsp Associates [facility] Ifeanyi Dunnn of preg w Nov-0 Jacob Referring In Womens Ultrasound poor reprodctv or 2-201 Nick. Provider: Beck LAM obstet hx, third [address] [place] PO Box triMaternal care HaiManjula phan L, 1522, for (suspected) [place], 700 [place], damage to fetus [place], Medical [place], by drugs, [id number] [place] [id number], unspMatern care , US. Drive US for oth or susp tel: [address], tel:[phone] poor fetl grth, [id number] Riaz, third tri, unsp30 [place], [address]. weeks gestation tel: of [phone] Associates Riaz Supervision of Ethan-2 Sobbing In Womens other high risk [place]. Health PA, pregnancies, 8 700 PO Box third Medical 1522, trimesterGestatio Center [place], nal htn w/o Drive, [place], significant [address] [id number], proteinuria, 120, US third trimester [place], [place]:+ [place], [address], [place]. tel: [phone] Sarah Mello Gestational htn Ethan-2 Sobbing In Womens Ultrasound w/o significant [place]. Health PA, proteinuria, 8 700 PO Box third Medical 1522, trimesterPrevious Center [place], Low Transverse [facility], [place], C-SectionMaternal [address] [id number], care for 120, US (suspected) Riaz, tel: damage to fetus [place], by drugs, unsp30 [address], weeks gestation [place]. of tel: [phone] Sarah Mello Supervision of Ethan-1 Sobbing Referring In Womens other high risk [place]. Provider: Health PA, pregnancies, 8 700 [place] PO Box third Medical Sobbing L, 1522, trimesterPrevious Center 700 [place], Low Transverse [facility], [facility], C-SectionObesity Suite Center [id number], complicating 120, Drive US , third [place], [address], tel:+ [id number] weeks [place] [address], [place], [address]. [place]. tel: tel: [phone] Associates SAUMYA Tenorio of preg w Ethan-0 Jacob Referring In Womens Ultrasound poor reprodctv or Nick. Provider: Health CAROLE, obstet hx, second [address] [place] PO Box triPrevious Low Hai, Sobbing L, 1522, Transverse [place], 700 [place], C-SectionMaternal [facility], care for [id number] Center [id number], (suspected) , US. Drive US damage to fetus tel: [address], tel:[phone] by drugs, unsp27 [id number] [place], [place], [address]. of tel:[phone] [facility] Carlievsn of preg w Ethan-0 James Referring In Womens Ultrasound poor reprodctv or Nick. Provider: Beck LAM, obstet hx, second 8 3232 E [facility] Box triPrevious Low [place], Sobbing L, 1522, Transverse [place], 700 [place], C-SectionMaternal [place], [facility], care for [id number] Center [id number], (suspected) , US. Drive US damage to fetus tel: [address], tel: by drugs, [id number] [place], [place], [address]. complicating tel: , second [phone] trimester Associates Riaz Supervision of Sobbing In Womens other high risk [place]. Beck LAM, pregnancies, 8 700 PO [facility] Medical 1522, trimesterPrevious [facility], [address], [place], C-Ealjubt59 weeks [id number], gestation of 120, [place], [place]: [place], [address], [place]. tel: [phone] Sarah Mello Sweet In Womens 4-201 . Beck LAM, 5 700 [facility] 1522, [address] Ana, [facility], 120, [id number], [facility] [place], tel: [phone] , [place]. tel: [phone] Sraah M[place] Sweet In Womens 3-201 . Beck LAM, 5 700 PO [facility] 1522, [address] Ana, [facility] [place], 120, [id number], [place], [place], tel:[phone] [phone] , [place]. tel: [phone] Family History Family Member Diagnosis Age At [...] Authorization(s) [employer] [place] MC [id number] [employer] [place] [employer] Medicaid MC [id number] Social History Type Description Quantity Date Captured Unknown Vital Signs Date / Height Weight BMI Pulse Blood Temperature Respiratory Body Head BMI Time: Rate Pressure Rate Surface Circumference percentile Area Unknown Chief Complaint And Reason For Visit Unknown Chief Complaint And Reason For Visit Reason For Referral Reason For Referral Unknown Plan Of Care Date Type Action Status Appointment Nissa Lisa BOOKED Appointment Lisa Azar BOOKED Appointment Lisa Azar BOOKED Appointment Lisa Azar BOOKED Appointment Lisa Azar BOOKED Appointment Lisa Azar [facility] R C/S, PPTL BOOKED Future Order: Radiology Order Ultrasound OB Follow-up ([id number]) Ordered Future Order: Radiology Order Biophysical Profile without NST Ordered ([id number]) Future Order: Radiology Order OB Detailed Complete Ultrasound Ordered ([id number]) Future Order: Radiology Order Biophysical Profile without NST Ordered ([id number]) Future Order: Radiology Order Umbilical Artery Echo ([id number]) Ordered Future Order: Radiology Order Biophysical Profile without NST Ordered ([id number]) Future Order: Radiology Order Umbilical Artery Echo ([id number]) Ordered Future Order: Lab Order Pap Smear [...]
--- OUTSIDE RECORDS SUMMARY | 2017-12-17 05:26 | External Medical Summary | Continuity of Care Document ---
:1990 Author Organization [facility] Address [address] [place], [place] [id number] Phone Care Team Providers Name Role Phone [facility] Unavailable Allergies, Adverse Reactions, Alerts Substance [...] Reference Range Abnormal Flag Comments Panel Description: Gestational Glucose Tolerance Glucose - Fasting 08:06:00 72 mg/dL 65-94 Glucose - 1 hour 08:06:00 188 mg/dL 65-179 H Glucose - 2 hour 08:06:00 102 mg/dL 65-154 Verified by repeat analysis Glucose - 3 hour 08:06:00 122 mg/dL 65-139 Verified by repeat analysis Note: 08:06:00 Comment For diagnosis of gestational diabetes, at least two values must meetor exceed normal limits, which is based on 100 gm of oral glucosechallenge. Advance Directives Directive Yes / No Effective Date File Name Unknown Encounters Encounter Practice Location Reason(s) Diagnoses Date Provider Care Team Description For Visit Members Sarah Mello Supervision of Sobbing In Womens other high risk 5-201 [place]. Health CAROLE, pregnancies, 8 700 [address] third Medical 1522, trimesterGestatio Center [place], nal htn w/o Drive, [place], significant [address] [id number], proteinuria, 120, [place] third Mello, tel:+ trimesterGestatio [place], [place] diabetes [address], mellitus in [place]. , diet tel: controlledPreviou [phone] s Low Transverse [facility] Suprvsn of preg w Nov-0 Weaver Referring In Womens Ultrasound poor reprodctv or 2-201 Viki. Provider: Beck LAM, obstet hx, third [address] [place] [address] triSupervision of [place]aren phanbing L, 1522, other high risk [place], 700 [place], [place], [place], Medical [place], third [id number] Center [id number], trimesterPrevious , US. Drive US Low Transverse tel: [address], tel:[phone] C-SectionMaternal [id number] [place], [address]. (suspected) tel: damage to fetus [phone] by drugs, unsp [facility] Suprvsn of preg w Nov-0 James Referring In Womens Ultrasound poor reprodctv or 2-201 Nick. Provider: Beck LAM, obstet hx, third [address] [place] [address] triMaternal care Hai, Karenbing L, 1522, for (suspected) [place], 700 [place], damage to fetus [place], Medical [place], by drugs, [id number] [place] [id number], unspMatern care , [place]. Drive [place] for oth or susp tel: [address], tel:[phone] poor fetl grth, [id number] Mello, third tri, unsp30 [place], [address]. weeks gestation tel:[phone] Associates [facility] Supervision of Sobbing In Womens other high risk 8 [place]. Health [place], pregnancies, 8 700 PO Box third Medical 1522, trimesterGestatio Center [place], nal htn w/o Drive, [place], significant [address] [id number], proteinuria, 120, [place] third [place], [place], [address], [place]. tel: [phone] [facility] Gestational htn Ethan-2 Sobbing In Womens Ultrasound w/o significant [place]. Health CAROLE, proteinuria, 8 700 [address] third Medical 1522, trimesterPrevious Center [place], Low Transverse [place], [place], C-SectionMaternal [address] [id number], care for 120, [place] (suspected) Riaz, tel: damage to fetus [place], by drugs, unsp30 [address], weeks gestation [place]. of tel: [phone] Sarah Mello Ethan-1 Sobbing In Womens [place]. Beck LAM, 8 700 [address] Medical [address], [place], [place], [address] [id number], 120, [place], [place]: [place], [address], [place]. tel: [phone] Sarah Mello Supervision of Ethan-1 Sobbing Referring In Womens other high risk [place]. Provider: Beck LAM, pregnancies, 8 700 [facility] Medical Sobbing L, 1522, trimesterPrevious Center 700 [place], Low Transverse [facility], [facility], C-SectionObesity Suite Center [id number], complicating 120, Drive [place] , third Mello, [address], tel: [id number] weeks [place] [address], [place], [address]. [place]. tel: tel: [phone] Associates [facility] Dunnn of preg w Ethan-0 James Referring In Womens Ultrasound poor reprodctv or Nick. Provider: Beck LAM, obstet hx, second 8 [address] [facility] Box triPrevious Low Hai, Sobbing L, 1522, Transverse [place], 700 [place], C-SectionMaternal [place], Medical [place], care for [id number] Center [id number], (suspected) , US. Drive US damage to fetus tel: [address], tel: by drugs, unsp27 [id number] [place]ello, [place], [address]. of tel:[phone] Associates [facility] Sextonvsn of preg w Ethan-0 James Referring In Womens Ultrasound poor reprodctv or Nick. Provider: Beck LAM, obstet hx, second [address] [place] PO Box triPrevious Low [place], Sobbing L, 1522, Transverse [place], 700 [place], C-SectionMaternal [place], [facility], care for [id number] Center [id number], (suspected) , US. Drive US damage to fetus tel: [address], tel: by drugs, [phone] [place], [place], [address]. complicating tel: , second [phone] trimester Associates R[facility] Supervision of Sobbing In Womens other high risk Derrick. Beck LAM, pregnancies, 8 700 PO Box second Medical 1522, trimesterPrevious [facility], Low [address], [place], [id number] weeks [id number], gestation of 120, [place], [place], [address], [place]. tel: [phone] Sarah Mello Sweet In Womens 4-201 . Beck LAM, 5 700 PO [address] Medical [address], [place] [address] Ana, [facility], 120, [id number], [facility] [place], tel: [phone] [address] , [place]. tel: [phone] Sarah Mello Sweet In Womens 3-201 . Beck LAM, 5 700 [address] Medical [address], [place] [address] Ana, [facility], 120, [id number], [facility] [place], tel:[phone] , [place]. tel: [phone] Family History Family Member Diagnosis Age At [...] Record Payers Payer name Insurance type Covered green party ID Authorization(s) [employer] [place]- Medicaid MC [id number] [employer] [place] Medicaid MC [id number] Social History Type Description Quantity Date Captured [...] Appointment Lisa Azar BOOKED Appointment Lisa Azar [facility] R C/S, PPTL BOOKED Future Order: Radiology Order OB Detailed Complete Ultrasound Ordered ([id number]) Future Order: Radiology Order Biophysical Profile without NST Ordered ([id number]) Future Order: Radiology Order Umbilical Artery Echo ([id number]) Ordered Future Order: Radiology Order Biophysical Profile without NST Ordered ([id number]) Future Order: Radiology Order Umbilical Artery Echo ([id number]) Ordered Future Order: Radiology Order Ultrasound OB Follow-up ([id number]) Ordered Future Order: Radiology Order Biophysical Profile without NST Ordered ([id number]) Future Order: Lab Order Pap Smear With [...]
--- OUTSIDE RECORDS SUMMARY | 2017-12-17 05:26 | External Medical Summary | Continuity of Care Document ---
:1990 Author Organization [facility] [facility] Address [address] [place], [place] [phone] Phone Care Team Providers Name Role Phone [facility] Unavailable Allergies, Adverse Reactions, Alerts [...] Sobbing In Womens other high risk 5-201 [facility] [place], pregnancies, 8 700 PO Box [facility] Medical 1522, trimesterGestatio [place], nal htn w/o [facility], [place], significant [id number], proteinuria, 120, US richard Mello, tel:+ trimesterGestatio [place], [address] nal diabetes [address], mellitus in [place]. , diet tel: controlledPreviou [phone] s Low Transverse [facility] w Weaver Referring In Womens Ultrasound poor reprodctv or Viki. Provider: Beck LAM, obstet hx, third [address] [place] PO Box triSupervision of Manjula Valels L, 1522, other high risk [place], 700 [place], pregnancies, [place], Medical [place], third [id number] Center [id number], trimesterPrevious , US. Drive US Low Transverse tel: [address], tel:[phone] C-SectionMaternal [id number] [place], [place], [address]. (suspected) tel:[phone] damage to fetus [phone] by drugs, unsp [facility] Jona of preg w Jacob Referring In Womens Ultrasound poor reprodctv or Nick. Provider: Beck LAM, obstet hx, third [address] [place] PO Box triMaternal care Manjula Valles L, 1522, for (suspected) [place], 700 [place], damage to fetus [place], Medical [place], by drugs, [id number] Center [id number], unspMatern care , [place]. Drive US for oth or susp tel: [address], tel:[phone] poor fetl grth, [id number] Mello, third tri, [place]sp30 [place], [address]. weeks gestation tel:[phone] Associates Riaz Supervision of Ethan-2 Sobbing In Womens other high risk [place]. Health CAROLE, pregnancies, 8 700 PO Box third Medical 1522, trimesterGestatio Center [place], nal htn w/o Drive, [place], significant [address] [id number], proteinuria, 120, US third trimester Riaz, tel:316 [place], [address], [place]. tel: [phone] Sarah Mello Gestational htn Ethan-2 Sobbing In Womens Ultrasound w/o significant [place]. Health [place], proteinuria, 8 700 PO Box third Medical 1522, trimesterPrevious Center [place], Low Transverse [facility], [place], C-SectionMaternal [address] [id number], care for 120, US (suspected) Riaz, tel:[phone] damage to fetus [place], by drugs, unsp30 [address], weeks gestation [place]. of tel: [phone] [facility] Ifeanyi Oct-2 James In Womens 2-201 Nick. Health [place], [address] [place], 1522, [place], [place], [place], [place], [id number], , [place]. [place] tel: tel: [phone] Associates Riaz Supervision of Sobbing Referring In Womens other high risk 4-201 [place]. Provider: Health CAROLE, pregnancies, 8 700 Derrick PO Box third Medical Sobbing L, 1522, trimesterPrevious Center 700 [place], Low Transverse [facility], [facility], C-SectionObesity Suite Center [id number], complicating 120, Drive [place] , third Mello, [address], tel: [id number] weeks [place], [place], [place] [address], [place], [address]. [place]. tel: tel: [phone] [facility] Monan of preg w Ethan-0 James Referring In Womens Ultrasound poor reprodctv or Nick. Provider: Beck LAM, obstet hx, second 8 [address] [place] PO Box triPrevious Low [place], Sobbing L, 1522, Transverse [place], 700 [place], C-SectionMaternal [place], [facility], care for [id number] Center [id number], (suspected) , US. Drive US damage to fetus tel: [address], tel: by drugs, unsp27 [id number] Mello, [place], [address]. of tel:[phone] [facility] Jona of preg w Ethan-0 James Referring In Womens Ultrasound poor reprodctv or Nick. Provider: Beck LAM, obstet hx, second 8 [address] [place] PO Box triPrevious Low Hai, Sobbing L, 1522, Transverse [place], 700 [place], C-SectionMaternal [place], [facility], care for [id number] Center [id number], (suspected) , US. Drive US damage to fetus tel: [address], tel: by drugs, [id number] Mello, 761890 [place], [address]. complicating tel: , second [phone] trimester Associates Riaz Supervision of Sobbing In Womens other high risk - [place]. Health [place], pregnancies, 8 700 PO Box second Medical 1522, trimesterPrevious [place], Low [address], [place], [id number] weeks [id number], gestation of 120, [place], [place]: [place], [address], [place]. tel: [phone] Sarah Mello Sweet In Womens 4-201 . Health [place], 5 700 PO [address] Medical [address], [address] [place], [facility] [place], 120, [id number], [facility] [place], tel: [phone] [address] , [place]. tel: [phone] Sarah Mello Sweet In Womens 3-201 . [facility], 5 700 [address] Medical [address], [address] [place], [facility] [place], 120, [id number], [facility] [place], tel:[phone] , [place]. tel: [phone] Family History Family Member Diagnosis Age At [...] Authorization(s) [employer] [place]- Medicaid MC [id number] [employer] [place] Medicaid MC [id number] Social History Type Description Quantity Date Captured [...] Appointment Lisa Azar BOOKED Appointment Lisa Azar [place] R C/S, PPTL BOOKED Future Order: Radiology Order OB Detailed Complete Ultrasound Ordered ([id number]) Future Order: Radiology Order Biophysical Profile without NST Ordered ([id number]) Future Order: Radiology Order Umbilical Artery Echo ([id number]) Ordered Future Order: Radiology Order Biophysical Profile without NST Ordered ([id number]) Future Order: Radiology Order Umbilical Artery Echo ([id number]) Ordered Future Order: Radiology Order Ultrasound OB Follow-up ([id number]) Ordered Future Order: Radiology Order Biophysical Profile without NST Ordered ([id number]) Future Order: Lab Order Pap Smear With [...]
[2017-12-17] MEDS ORDERED: FAMOTIDINE PB 20 MG/50 ML BAG IV ONE (05:50)
[2017-12-17] MEDS ORDERED: NOZIN NASAL SWAB NAS ONE ×2 (05:50)
[2017-12-17] MEDS ORDERED: CEFAZOLIN PREMIX (MC ONLY) 2 GM/50 ML BAG IV ONE (05:50)
[2017-12-17] MEDS ORDERED: CITRIC ACID/SODIUM CITRATE 30ml PO ONE (05:50)
[2017-12-17] MEDS: LR 1,000 ML IV SCH ×2 (06:13→07:25)
[2017-12-17 06:28] VITALS: BMI 35.9
[2017-12-17] MEDS ORDERED: OXYTOCIN BOLUS BAG 30 UNIT/500 ML ML IV SCH (07:00)
[2017-12-17] MEDS ORDERED: ONDANSETRON 4 MG/2 ML INJECTION IVP PRN (07:02)
[2017-12-17] MEDS ORDERED: NALOXONE 2 MG/2 ML INJECTION PFS IVP PRN (07:02)
[2017-12-17] MEDS ORDERED: NALBUPHINE 10 MG/ML INJECTION IVP PRN (07:02)
--- NOTE | 2017-12-17 07:02 | Anesthesia Preoperative Report ---
Anesthesia Epidural/Spinal Rec - Date and Time Date: 12/17/17 Preoperative Diagnosis: Repeat C Section Procedure: Plan: Spinal - Vital Signs Vital Signs: Temperature 97.9 F 12/17/17 06:34 Pulse Rate 103 H 12/17/17 06:34 Respiratory Rate 20 12/17/17 06:34 Blood Pressure 134/84 12/17/17 06:34 Pulse Oximetry 98 12/17/17 06:34 /Para: P:3 - Medictaions & Allergies Inpatient Medications: Current Medications Citric Acid/Sodium Citrate (Oracit) 30 ml PO PREOP ONE Stop: 12/17/17 05:51 Last Admin: 12/17/17 06:56 Dose: 30 ml Cefazolin Sodium/Dextrose (Kefzol Premix ( Only)) 2 gm in 50 mls @ 100 mls/ hr IV PREOP ONE Stop: 12/17/17 06:19 Last Admin: 12/17/17 06:56 Dose: 100 mls/hr Famotidine/Sodium Chloride (Pepcid Premix) 20 mg in 50 mls @ 100 mls/hr IV PREOP ONE Stop: 12/17/17 06:19 Last Admin: 12/17/17 06:19 Dose: 100 mls/hr Lactated Ringer's (Lactated Ringers) 1,000 mls @ 150 mls/hr IV .Q6H40M [facility] Last Admin: 12/17/17 06:13 Dose: 150 mls/hr Oxytocin (Pitocin Bolus Bag) 30 unit in 500 mls @ 999 mls/hr IV .Q31M [facility] Stop: 12/17/17 07:30 Isopropyl Alcohol (Nozin Nasal Swab) 3 each KENNEDY PREOP ONE Stop: 12/17/17 05:51 Last Admin: 12/17/17 06:20 Dose: 3 each Isopropyl Alcohol (Nozin Nasal Swab) 1 each KENNEDY O ONE Stop: 12/17/17 05:51 Allergies/Adverse Reactions: Allergies Allergy/AdvReac Type Severity Reaction Status Date / Time No Known Drug Allergies Allergy Unknown Verified 06/08/17 11:18 - Home Medications Home Medications: Home Medications Medication Instructions Recorded Confirmed Type Pnv No.95/Ferrous Fum/Folic AC 1 tab PO DAILY 06/08/17 12/16/17 History [ Tablet] Insulin Glargine [Lantus] 8 units SQ DAILY 12/16/17 12/16/17 History - Medical History Respiratory: DENIES: Asthma, Bronchitis, Chronic Obstructive Pulmonary Disease (COPD), Dyspnea, Orthopnea, Pulmonary Embolism, Pneumonia, Upper Respiratory Infection, Pulmonary Edema, Sleep Apnea, Tuberculosis, Other Cardiovascular: DENIES: Abnormal EKG, Angina, Arrhythmia, Congestive Heart Failure, Coronary Artery Disease, Heart Murmur, Hypertension, Hypotension, High Cholesterol, Myocardial Infarction, Rheumatic Fever, Valvular Heart Disease, Other Gastrointestional: DENIES: Obstructive Bowel, Hepatitis, Cirrhosis, Nausea or Vomiting Present, Gastroesophageal Reflux Disease, Gastrointestinal Bleeding, Hiatal Hernia, Ulcer , Morbid Obesity, Other Neuro/Musculoskeletal: Denies: Back Problems, Cerebrovascular Accident, Depression, Headaches, Loss of Consciousness, Muscle Weakness, Neuromuscular Disorder, Paralysis, Paresthesia, Syncope, Seizures, Other Renal/Endocrine: Reports: Other (GESTATIONAL DIABETES ON INSULIN) DENIES: Diabetes Mellitus Type 1, Diabetes Mellitus Type 2, Renal Failure, Dialysis, Thyroid Disease, Weight Loss, Weight Gain Other History: Reports: Now (LMP "THE FIRST WEEK OF MARCH SOMETIME") - Surgical History Reproductive Surgery/Treatment: Reports: Section Anesthesia Reactions: None Hx Family Anesthesia Reaction: No History of Motion Sickness: No - Social History Smoking Status: Never smoker Substance Use Type: does not use Alcohol Intake Frequency: does not drink Hx Chewing Tobacco Use: No - Pertinent Findings Lab Data: CBC and BMP 12/17/17 06:05 - Physical Exam Respiratory Exam: lungs clear, bilateral breath sounds equal Cardiovascular Exam: regular rate and rhythm, no murmur - Airway Assessment Mallampati Score: I TMD: 3 Fingerbreadths Neck Extension: good - ASA ASA Score: 2 - Discussion Discussion: Discussed risks/options/alternatives of anesthesia and questions answered. Patient consents. Nursing pain assessment noted. Anesthesia Discussion: family member Attestation Statement: Prior to the delivery of any anesthetic medication, I examined the patient, developed the plan, obtained the patient's consent and discussed the risk and benefits of the procedure with the patient/guardian.
[2017-12-17] MEDS ORDERED: ONDANSETRON 4 MG/2 ML INJECTION ONE ×2 (07:12→07:15)
[2017-12-17] MEDS ORDERED: FentaNYL 100 MCG/2 ML INJECTION ONE (07:15)
[2017-12-17] MEDS ORDERED: EPHEDRINE 50mg/ml INJECTION ONE (07:15)
[2017-12-17] MEDS ORDERED: PHENYLEPHRINE INJ 10 MG/ML VIAL IV ONE ×2 (07:15→07:36)
[2017-12-17] MEDS ORDERED: LIDOCAINE 1% (10mg/ml) 30ml SDV INJ ONE ×2 (07:15→07:21)
[2017-12-17] MEDS ORDERED: BUPIVACAINE 0.75%/DEXTROSE 8.5% SPINAL 2 ML AMPULE IJ ONE ×2 (07:15→07:21)
[2017-12-17] MEDS ORDERED: MORPHINE SULFATE PF 5mg/10ml INJ (Duramorph) ONE (07:15)
[2017-12-17] MEDS ORDERED: SIMETHICONE 80 MG CHEWABLE TABLET PO PRN (08:42)
[2017-12-17] MEDS ORDERED: CALCIUM CARBONATE Chewable 500mg TABLET PO PRN (08:42)
[2017-12-17] MEDS ORDERED: ACETAMINOPHEN 500 MG TABLET PO PRN (08:42)
[2017-12-17] MEDS ORDERED: MEASLES-MUMPS-RUBELLA VACCINE 0.5ml INJECTION SQ ONE (08:42)
[2017-12-17] MEDS ORDERED: DiphenhydrAMINE 25 MG CAPSULE PO PRN (08:42)
[2017-12-17] MEDS ORDERED: ONDANSETRON ODT 4 MG TABLET PO PRN (08:42)
[2017-12-17] MEDS ORDERED: HYDROCORTISONE 2.5% CREAM 30gm RECTALLY PRN (08:42)
--- NOTE | 2017-12-17 08:42 | Operative Note ---
Operative Note - Date of Operation Date of Operation: 12/17/17 - General : 4 Para: 3 Estimated or Known Gestational Age (weeks): 37 - Preoperative Diagnosis Previous Section, Gestational Diabetes Preoperative Diagnosis: CHTN Desires sterilization - Postoperative Diagnosis Postoperative Diagnosis: Same - Procedure Low-transverse , Tubal Ligation - Surgeon Surgeon: Derrick Fair DO - Supervisor Of Guidance And Testing OB Supervisor Of Guidance And Testing: Emily Sweet MD - Anesthesia Anesthesia Provider: Jl Weaver CRNA Anesthesia Type: Spinal - Estimated Blood Loss Estimated Blood Loss:: 600 - Findings Findings: viable male Comments: PPTL - APGARS : 8/9 - [place] Weight [place] Weight (grams): 2792 - Name Name: Kostas
[2017-12-17] MEDS ORDERED: OXYTOCIN DRIP 30 UNIT/500 ML ML IV SCH (08:45)
[2017-12-17] MEDS: D5LR 1,000 ML IV SCH ×2 (09:29→19:43)
[2017-12-17] MEDS: DOCUSATE CALCIUM 240 MG CAPSULE PO SCH (09:30)
[2017-12-17] MEDS: IBUPROFEN 800 MG TABLET PO PRN ×2 (11:28→21:55)
[2017-12-17] MEDS: Oxycodone/Acetaminophen 5/325 1 TAB PO PRN ×4 (11:29→19:58)
[2017-12-17] MEDS: MetroNIDAZOLE 500 MG TABLET PO SCH ×3 (11:30→21:53)
[2017-12-17] MEDS: SIMETHICONE 80 MG CHEWABLE TABLET PO SCH ×4 (11:31→22:09)
--- NOTE | 2017-12-17 11:44 | Operative Note ---
DATE OF SERVICE 12/17/2088 PREOPERATIVE DIAGNOSIS 1. Single live intrauterine at term. 2. Previous x2. 3. History of PRES syndrome. 4. Chronic hypertension. 5. Gestational diabetes. 6. Desires permanent sterilization. POSTOPERATIVE DIAGNOSIS 1. Single live intrauterine at term. 2. Previous x2. 3. History of PRES syndrome. 4. Chronic hypertension. 5. Gestational diabetes. 6. Desires permanent sterilization. 7. Delivered. PROCEDURE Low transverse section via Pfannenstiel incision and a tubal ligation. COMPLICATIONS None SPECIMENS Bilateral fallopian tubes FINDINGS Viable male infant named Brendan in cephalic presentation, Apgars 8/9 with a weight of 2792. Estimated blood loss was 600 mL . SURGEON Derrick Fair DO VEHICLE TECHNICIAN Emily Sweet MD INDICATIONS FOR PROCEDURE This is a G4, P3 who had received care through our office routinely and had been followed by Maternal Medicine secondary to her history of PRES syndrome, history of chronic hypertension and gestational diabetes and [facility] recommendations were for delivery at 37 weeks. She presented to Maternal/Child Unit. The risks, benefits and alternatives to the procedure were discussed including risk of infection, injury to bowel, bladder, , bleeding with the need for a transfusion. The risks of the tubal were discussed including failure and risk of ectopic . Questions were elicited and answered. DESCRIPTION OF PROCEDURE The patient was taken to the operating room where spinal epidural was obtained without difficulty. She was then prepped and draped in the dorsal supine position with a leftward tilt. A Pfannenstiel skin incision was then made through the skin and carried through the underlying layer to the fascia. The fascia was incised in the midline and fascial incision was then extended laterally with the Mejía scissors. The superior aspect of the fascial incision was then grasped with the Maged clamp, elevated and the rectus muscle dissected off sharply with the Mejía scissors. Attention was then turned to the inferior aspect of the fascial incision which was grasped with a Maged clamp, elevated and the rectus muscles dissected off sharply with the Mejía scissors. At this time, the rectus muscles were sharply with the scalpel in the midline. The peritoneum was then tented up and entered sharply. The peritoneal incision was then extended superiorly and inferiorly with good visualization of the bladder. The bladder blade was inserted and the vesicouterine peritoneum was identified and entered sharply. The incision was extended laterally. The bladder flap was then created digitally and the bladder blade was then reinserted. The uterine incision was made in a transverse fashion and then extended laterally with cephalad/caudad motion. The amniotomy was performed noting clear fluid and then the infant was delivered , cephalic presentation, atraumatically. At this time, the cord was clamped and cut and the was handed to the key bed installer who was waiting. The placenta was manually removed. The uterus was exteriorized and cleared of all clots and debris and the uterine incision was repaired with 0 Monocryl in a running locked fashion. Excellent hemostasis was noted at this time and attention was turned to the tubal. The right fallopian tube was identified at the cornua and followed out to the fimbria. The right round ligament was identified at the uterus and followed out to the pelvic sidewall. At this time , a window was made in the mesosalpinx. The right fallopian tube was grabbed with a Randy clamp and a 3 cm segment of fallopian tube was ligated using 3-0 chromic. Attention was turned to the left side which was identified and ligated in a similar fashion. Specimens were sent to Pathology. At this time, the uterus was returned to the abdomen. The gutters were cleared of all clot and debris. The right side was noted to have a small amount of bleeding from the mesosalpinx. This was grasped with a right angle clamp and a free tie of 3- 0 chromic was used to obtain excellent hemostasis. At this time, the peritoneum was closed with 3-0 Monocryl in a running locked fashion. The fascia was then reapproximated with 0 Vicryl in a running fashion. Subcutaneous layer was repaired with 2-0 plain gut, skin was closed with 4-0 Monocryl and Prineo Dermabond. The patient tolerated the procedure well. Sponge, lap and needle counts were correct x2 and patient was taken to recovery room in stable condition. DAVYE
--- NOTE | 2017-12-17 17:47 | Anesthesia Postoperative Note ---
- Date and Time Date: 12/17/17 Time: 17:34 - Status Patient Participated in Evaluation: Other (via nurse. pt sleeping) Vital Signs: Temperature 97.9 F 12/17/17 06:34 Pulse Rate 103 H 12/17/17 06:34 Respiratory Rate 20 12/17/17 10:06 Blood Pressure 134/84 12/17/17 06:34 Pulse Oximetry 98 12/17/17 06:34 Respiratory Function: Airway Patent Cardiovascular Function: Regular Pulse EKG: Sinus Rhythm Mental Status: Alert and Oriented Pain Intensity: 5 Unable to Assess Pain Due to: Patient Sleeping Hydration: Taking PO Fluids Nausea/Vomiting: None Complications During Recover: None Apparent - Follow-Up Instructions Instructions: Per Surgeon
[2017-12-17] MEDS ORDERED: LR 1,000 ML IV SCH ×3 (18:30→20:55)
[2017-12-17] MEDS: Oxycodone *IR* 5 MG TABLET PO PRN (23:25)
[2017-12-18] MEDS: Oxycodone/Acetaminophen 5/325 1 TAB PO PRN ×4 (02:15→20:46)
[2017-12-18] MEDS: D5LR 1,000 ML IV SCH ×2 (04:03→17:54)
[2017-12-18] MEDS ORDERED: NS FLUSH BAG 500ml IV PRN (06:47)
--- NOTE | 2017-12-18 06:52 | OB/GYN Progress Note ---
OB-PP Progress Note - General PPD1 POD:: POD1 Maternal Group B Strep: Negative Maternal Rh: positive Maternal Rubella Status: Not Immune - Subjective Date: 12/18/17 Lochia: Minimal Pain: controlled Voiding: gloria still in place Nausea or Vomiting Present: No - Objective Vital Signs: Last Vital Signs Temp 98.0 F 12/18/17 06:08 Pulse 99 12/18/17 06:08 Resp 18 12/18/17 06:08 BP 133/86 12/18/17 06:08 Pulse Ox 99 12/18/17 06:08 Urine Output: dereased General: alert and oriented Respiratory: non-labored Abdomen: fundus firm, non-distended, tender Incision: normal, clean Edema: none Laboratory: Laboratory Results - last 24 hr 12/17/17 12/17/17 12/17/17 06:05 16:22 20:25 WBC 10.9 RBC 3.45 L Hgb 10.1 L D 8.5 L D Hct 31.2 L D 25.7 L D MCV 90.4 MCH 29.3 MCHC 32.4 RDW Std Deviation 51.9 H Plt Count 215 MPV 10.0 Blood Type O Positive Antibody Screen Negative Crossmatch (AHG) See Detail 12/18/17 04:42 WBC RBC Hgb 6.8 L D Hct 20.6 L D MCV MCH MCHC RDW Std Deviation Plt Count MPV Blood Type Antibody Screen Crossmatch (AHG) - Assessment Assessment: SP, Repeat C/S, Tubal Ligation, Anemia - Plan Plan: routine care Pt seen and examined this am. Denies GOOD, Vision changes, N/V. Pain is well controlled. Abdomen is soft. Lochia is minimal. UOP had decreased. Pt had fluid bolus last evening and UOP had returned and now decreased again. Hgb to start was 12.9 then 10.1, 8.5, 6.9. Discussed suspicion for internal bleeding discussed going back to OR for exploratory laparotomy vs giving one unit of PRBC and watching closely. Discussed R/B/A to exploratory laparotomy including infection, injury to bowel or bladder, bleeding, . Discussed risk of hysterectomy if needed to control bleeding. Questions elicited and answered. Plan will give one unit of blood monitor pt closely and repeat Hgb after transfusion.
[2017-12-18] MEDS: MetroNIDAZOLE 500 MG TABLET PO SCH ×3 (09:14→20:45)
[2017-12-18] MEDS: IBUPROFEN 800 MG TABLET PO PRN ×2 (09:15→20:46)
[2017-12-18] MEDS: SIMETHICONE 80 MG CHEWABLE TABLET PO SCH ×4 (09:16→20:45)
[2017-12-18] MEDS ORDERED: SODIUM FERRIC GLUC COMPLEX IV ONE (14:30)
[2017-12-18] MEDS ORDERED: NS IV ONE (14:30)
[2017-12-18] MEDS: DOCUSATE CALCIUM 240 MG CAPSULE PO SCH (15:14)
[2017-12-18] MEDS ORDERED: SALINE FLUSH 10ml SYRINGE IV PRN (17:32)
[2017-12-18] MEDS: Oxycodone *IR* 5 MG TABLET PO PRN (18:59)
[2017-12-19] MEDS: Oxycodone/Acetaminophen 5/325 1 TAB PO PRN ×6 (00:54→23:09)
[2017-12-19] MEDS: IBUPROFEN 800 MG TABLET PO PRN ×2 (08:29→17:05)
[2017-12-19] MEDS: Oxycodone *IR* 5 MG TABLET PO PRN ×3 (08:30→17:04)
[2017-12-19] MEDS: DOCUSATE CALCIUM 240 MG CAPSULE PO SCH (10:58)
[2017-12-19] MEDS: SIMETHICONE 80 MG CHEWABLE TABLET PO SCH ×5 (10:58→23:09)
--- NOTE | 2017-12-19 11:40 | Progress Note ---
OB PP Progress Note Free Text - Date Date: 12/19/17 - Progress Note Progress Note: af, pulse still slightly high hgb improved gloria out plan dc tomorrow q&a
[2017-12-20 01:23] VITALS: O2SAT 98
[2017-12-20] MEDS: IBUPROFEN 800 MG TABLET PO PRN (05:04)
[2017-12-20] MEDS: Oxycodone/Acetaminophen 5/325 1 TAB PO PRN ×2 (05:04→10:45)
[2017-12-20 08:16] VITALS: BP 138/89; PULSE 102; RESP 16; TEMP 97.9
[2017-12-20] MEDS: SIMETHICONE 80 MG CHEWABLE TABLET PO SCH (10:47)
[2017-12-20] MEDS: DOCUSATE CALCIUM 240 MG CAPSULE PO SCH (10:47)
--- NOTE | 2017-12-20 13:15 | Progress Note ---
OB PP Progress Note Free Text - Date Date: 12/20/17 - Progress Note Progress Note: doing well desires dc move f/u to this week instead of next week q&a
== END 2017-12-20 01:33 | disposition home or self-care (01) | DRG 765 ==
LOC: MC 05:11
PROVIDERS: ADMIT Obstetrics & Gynecology; ATTEND Obstetrics & Gynecology